=== PATIENT | female | born 1950 | race Caucasian/White ===

== ENCOUNTER → 2017-11-11 | Day surgery (SDC) | payer MEDICARE, OTHER ==
[2017-11-09 09:56] LABS: BASOPHILS % 0.5 % (0.0-1.0); EOSINOPHILS # (AUTO) 0.4 (0.0-0.4); EOSINOPHILS % 4.7 % (0.0-6.0); HEMATOCRIT 40.7 % (34.2-44.1); HEMOGLOBIN 13.5 g/dL (12.0-16.0); LYMPHOCYTES # (AUTO) 2.1 (1.0-3.2); LYMPHOCYTES % 27.2 % (18.0-39.1); MEAN CORPUSCULAR HEMOGLOBIN 28.9 pg (28-32); MEAN CORPUSCULAR HGB CONC 33.2 g/dL (31-35); MEAN CORPUSCULAR VOLUME 87.2 fL (81-99); MONOCYTES # (AUTO) 0.9 (0.2-0.8); MONOCYTES % 11.2 % (4.4-11.3); NEUTROPHILS # (AUTO) 4.3 (2.1-6.9); NEUTROPHILS % 56.1 % (38.7-80.0); PLATELET COUNT 215 x10e3/uL (140-360); RED BLOOD COUNT 4.67 x10e6/uL (3.6-5.1); RED CELL DISTRIBUTION WIDTH 13.8 % (11.7-14.4)
[~2017-11-11] MED LIST: ANALPRAM-HC TP; BENTYL10 MG PO; DEXILANT60 MG PO; FENTANYL CITRATE/PF 100MCG/2 ML INJ ONE; KEPPRA XR750 MG PO; KEPPRA1000 MG PO; LEVAQUIN500 MG PO; LIDOCAINE HCL 2% LOCAL INJ 5 ML SDV VIAL INJ ONE; LINZESS PO; MIDAZOLAM HCL 2 MG/2 ML VIAL ONE; NEXIUM20 MG PO; PAPAYA ENZYME1 EAC1 PO; PROMETHAZINE HC25 M1 PO; PROPOFOL IV EMULSION 10 MG/ML 20 ML VIAL ONE; THYROXINE PO; TRAZODONE HCL100 MG PO; TYLENOL WITH C1 EACH PO; ULTRAM 50MG50 MG PO; VITAMIN D35000 UNI1 PO; ZOFRAN8 MG PO; ZOLOFT50 MG PO
--- OUTSIDE RECORDS SUMMARY | 2017-11-11 10:05 | XMS REPORT ---
Author Author [facility] Address Unknown Phone Unavailable Care Team Providers Care Jailkeeper Name Role Phone ROSLYN TOBIAS Unavailable Unavailable Problems This patient has no known problems. Allergies, Adverse Reactions, Alerts This patient has no known allergies or adverse reactions. Medications This patient has no known medications. Results Test Description Test Time Test Comments Text Results Atomic Results Result Comments CT ABDOMEN/PELVIS WO [place] [address] Patient Name: SOPHIA CASEY MR #: [id number] : 1950 Age/Sex: 67/F Req #: [id number] Adm Physician: Ordered by: ROSLYN TOBIAS MD Report #: [id number] Location: ER Room/Bed: Procedure: [id number] CT/CT ABDOMEN/PELVIS WO Exam Date: 05/05/17 Exam Time: 0410 REPORT STATUS: Signed EXAM: CT ABDOMEN AND PELVIS without IV CONTRAST DATE: 05/05/2017 4:02 AM Time stamp on Exam: 0408 hours INDICATION: Fever, diarrhea, vomiting COMPARISON: CT of the abdomen and pelvis October 17, 2015 TECHNIQUE: The abdomen and pelvis were scanned using a multidetector helical scanner. Coronal and sagittal reformations were obtained. Renal stone protocol performed. IV Contrast: None Oral Contrast: None CTDIvol has been reviewed. It is below the limits set by the Radiation Protocol Committee (RPC). FINDINGS: LOWER THORAX: No consolidations LIVER: No masses BILIARY: The gallbladder has been removed. SPLEEN: No masses PANCREAS: Fatty infiltration. ADRENALS: No nodules RIGHT KIDNEY: No nephroureterolithiasis or hydronephrosis. LEFT KIDNEY: Stable 3 and 4 mm nonobstructing stones in the interpolar region. Stable left renal pelviectasis. GI TRACT: No distention, wall thickening or evidence of obstruction. VESSELS: Unremarkable PERITONEUM/ RETROPERITONEUM: No free air or fluid LYMPH NODES: No lymphadenopathy REPRODUCTIVE ORGANS: Not visualized BLADDER: Unremarkable SOFT TISSUES: Surgical changes of ventral hernia repair. BONES: No suspicious bone lesions. IMPRESSION: No interval change from prior exam or acute findings to explain patient's symptoms. Signed by: Dr. Carine Kovacs M.D. on 07/2017 4:46 AM Dictated By: CARINE KOVACS MD 5 Transcribed By: BRITTANEY on 05/05/17445 COPY TO: ROSLYN TOBIAS MD CHEST 2 VIEWS [place] [address] Patient Name: SOPHIA CASEY MR #: [id number] : 1950 Age/Sex: 67/F Req #: [id number] Adm Physician: Ordered by: ROSLYN TBOIAS MD Report #: [id number] Location: ER Room/Bed: Procedure: [id number] DX/CHEST 2 VIEWS Exam Date: 05/05/17 Exam Time: 0415 REPORT STATUS: Signed EXAM: CHEST 2 VIEWS, PA and lateral DATE: 05/05/2017 4:02 AM Time stamp on exam: 0411 hours INDICATION: Vomiting, fever COMPARISON: None FINDINGS: LINES/TUBES: None LUNGS: No consolidations or edema. PLEURA: No effusions or pneumothorax. HEART AND MEDIASTINUM: Normal size and contour. BONES AND SOFT TISSUES: No acute findings. IMPRESSION: No acute thoracic abnormality. Signed by: Dr. Carine Kovacs M.D. on 05/05/2017 4: 46 AM Dictated By: CARINE KOVACS MD 5 Transcribed By: BRITTANEY on 05/05/17445 COPY TO: ROSLYN TOBIAS MD
== END | disposition home or self-care (01) ==
LOC: OR 10:04
PROVIDERS: ATTEND Internal Medicine Gastroenterology
DX: K29.50 Unspecified chronic gastritis without bleeding (principal); D12.2 Benign neoplasm of ascending colon; D12.4 Benign neoplasm of descending colon; K22.70 Barrett's esophagus without dysplasia; K21.0 Gastro-esophageal reflux disease with esophagitis; K58.9 Irritable bowel syndrome, unspecified; K59.00 Constipation, unspecified; K57.30 Diverticulosis of large intestine without perforation or abscess without bleeding; K64.8 Other hemorrhoids; K44.9 Diaphragmatic hernia without obstruction or gangrene; E66.01 Morbid (severe) obesity due to excess calories; R56.9 Unspecified convulsions; I25.10 Atherosclerotic heart disease of native coronary artery without angina pectoris; I25.2 Old myocardial infarction; N20.0 Calculus of kidney; I95.9 Hypotension, unspecified; Z01.810 Encounter for preprocedural cardiovascular examination; Z01.812 Encounter for preprocedural laboratory examination; Z68.41 Body mass index [BMI] 40.0-44.9, adult; Z80.0 Family history of malignant neoplasm of digestive organs; Z83.79 Family history of other diseases of the digestive system
CPT/HCPCS: 36415; 43239; 45384; 45385; 85025; 93005; J2001; J2250

== ENCOUNTER → 2018-02-26 | Outpatient (CLI) | payer MEDICARE ==
[~2018-02-26] MED LIST changes: -FENTANYL CITRATE/PF 100MCG/2 ML INJ ONE; -LIDOCAINE HCL 2% LOCAL INJ 5 ML SDV VIAL INJ ONE; -MIDAZOLAM HCL 2 MG/2 ML VIAL ONE; -PROPOFOL IV EMULSION 10 MG/ML 20 ML VIAL ONE
--- NOTE | 2018-02-26 11:28 | Diagnostic Imaging Report ---
PROCEDURE:X-RAY ABDOMEN - KUB COMPARISON:Abdominal CT 05/05/2017 INDICATIONS:CALCULI OF KIDNEY FINDINGS: There is a non-obstructed bowel-gas pattern. There are two adjacent 0.3 cm calcifications projecting over the midpole of the left renal silhouette, as seen on CT 05/05/2017. No calcifications project over the right renal silhouette, expected course of both ureters, or bladder. Multiple phleboliths are unchanged from the prior CT. Cholecystectomy clips in the right upper quadrant. There are no acute osseous abnormalities. The lung bases are clear. CONCLUSION: Two 0.3 cm renal calculi in the left kidney. Dictated by: Сергей Forde M.D. on 02/26/2018 at 11:32 Electronically approved by: Сергей Forde M.D. on 02/26/2018 at 11:32
== END ==
LOC: RAD 10:12
PROVIDERS: ATTEND Urology
DX: N20.0 Calculus of kidney (principal)
CPT/HCPCS: 74018

== ENCOUNTER 2018-06-09 07:26 | Observation (INO) | payer MEDICARE, OTHER ==
[2018-06-02 16:49] LABS: BASOPHILS # (AUTO) 0.1 (0.0-0.1); BASOPHILS % 0.7 % (0.0-1.0); EOSINOPHILS # (AUTO) 0.3 (0.0-0.4); EOSINOPHILS % 3.3 % (0.0-6.0); HEMATOCRIT 39.6 % (34.2-44.1); HEMOGLOBIN 13.1 g/dL (12.0-16.0); LYMPHOCYTES # (AUTO) 2.4 (1.0-3.2); LYMPHOCYTES % 27.3 % (18.0-39.1); MEAN CORPUSCULAR HEMOGLOBIN 29.8 pg (28-32); MEAN CORPUSCULAR HGB CONC 33.1 g/dL (31-35); MEAN CORPUSCULAR VOLUME 90.2 fL (81-99); MONOCYTES % 11.4 % (4.4-11.3); NEUTROPHILS % 57.1 % (38.7-80.0); PLATELET COUNT 253 x10e3/uL (140-360); RED BLOOD COUNT 4.39 x10e6/uL (3.6-5.1); RED CELL DISTRIBUTION WIDTH 13.5 % (11.7-14.4)
--- NOTE | 2018-06-02 16:55 | Diagnostic Imaging Report ---
EXAMINATION: PA and lateral views of the chest. COMPARISON: None CLINICAL HISTORY: Preoperative, hiatal hernia DISCUSSION: Lines/tubes: None. Lungs: The lungs are well inflated and clear. No pneumonia or pulmonary edema. Pleura: No pleural effusion or pneumothorax. Heart and mediastinum: The cardiomediastinal silhouette is normal. Bones and soft tissues: No acute bony abnormalities. IMPRESSION: No acute cardiopulmonary abnormalities. Signed by: Dr. Kyrie Calabrese M.D. on 06/02/2018 4:52 PM
[2018-06-02 17:16] LABS: ANION GAP 13.5 mmol/L (8-16); BLOOD UREA NITROGEN 16 mg/dL (7-26); BUN/CREATININE RATIO 19 (6-25); CALCIUM 9.4 mg/dL (8.4-10.2); CARBON DIOXIDE 25 mmol/L (22-29); CHLORIDE 104 mmol/L (98-107); CREATININE, SERUM 0.84 mg/dL (0.57-1.11); EST GLOMERULAR FILTRATION RATE > 60 ML/MIN (60-); GLUCOSE 92 mg/dL (74-118); POTASSIUM 3.5 mmol/L (3.5-5.1); SODIUM 139 mmol/L (136-145)
[~2018-06-09] VITALS: Ht 162.6 cm; Wt 108.1 kg
[~2018-06-09 07:26] MED LIST changes: +ASPIR 8181 MG PO; +BENTYL10 MG/1 ML PO; +LEVOTHYROXINE100 MC1 PO; +LIPITOR20 MG PO; +NEXIUM40 MG PO; +NORVASC5 MG PO; +REGLAN10 MG PO; +VIT D PO
--- OUTSIDE RECORDS SUMMARY | 2018-06-09 07:33 | XMS REPORT | Summary of Care ---
Author Author [facility] [place] Organization [facility] [place] Address Unknown Phone Unavailable Encounter [facility] Maynorntr_anjel(FIN) [phone] Date(s): 11/28/16 - 11/28/16 [facility] [place] [address] [place] [phone] Discharge Disposition: Home or Self Care Attending Physician: Donna Darnell MD Vital Signs No data available for this section Problem List No data available for this section Allergies, Adverse Reactions, Alerts Substance Reaction Severity Status NKDA Active Medications No data available for this section Results No data available for this section Immunizations No data available for this section Procedures No data available for this section Social History No data available for this section Assessment and Plan No data available for this section
--- OUTSIDE RECORDS SUMMARY | 2018-06-09 07:33 | XMS REPORT | Summary of Care ---
Author Organization Unknown Address Unknown Phone Unavailable Care Team Providers Care Yard Motor Operator Name Role Phone Wilma Duke PCP Encounter Osirisr_anjel([facility]) [phone] Date(s): 01/08/15 - 01/08/15 [facility] Outpatient Imaging - [address] [address] [phone] Discharge Disposition: Home Physician Attending: Bang George DO Vital Signs No data available for this [...]
--- OUTSIDE RECORDS SUMMARY | 2018-06-09 07:33 | XMS REPORT | Continuity of Care Document ---
Author Author Audrey busch Organization Interface Address Unknown Phone Unavailable Problems Problem Status Onset Date Classification Date Reported Comments Source Meningioma Resolved 02/04/2017 Problem 03/01/2018 [facility], [facility] MENINGIOMA D33.0 Active 01/01/2017 [facility] N64.4 - MASTODYNIA Active 09/04/2016 JUSTINE Stephens Heart attack Resolved 08/24/1989 Problem 03/01/2018 [facility] [place],[facility] Narayan,[facility] Morbid obesity Active Problem 03/01/2018 [facility] Angelo,[facility] Narayan,[facility] Meningioma Active Problem 03/01/2018 [facility] [place],[facility] Narayan,[facility] Medications Medication Details Route Status Patient Instructions Ordering Provider Order Date Source levothyroxine 100 mcg (0.1 mg) oral tablet 100 microgram=1 tab, PO, Daily, 0 Refill(s) Active 08/03/2017 [facility] Linzess PO, Daily, 0 Refill(s) Active 08/03/2017 [facility] Acetaminophen 325 MG / Hydrocodone Bitartrate 5 MG Oral Tablet 1 tab, Route: PO, Drug Form: TAB, Dosing Weight 110, kg, Q4H, PRN Pain Score 4-6, Start date: 02/04/17 6:03:00 CDT, Duration: 30 day, Stop date: 03/06/17 6:02:00 CDT Inactive 02/04/2017 [facility] Acetaminophen 325 mg, Route: PO, Drug form: TAB, Q4H, Dosing Weight 110, kg, PRN Pain Score 1-3, Start date: 02/04/17 6:03:00 CDT, Duration: 30 day, Stop date: 03/06/17 6:02:00 CDT Inactive 02/04/2017 [facility] Sodium Chloride 0.154 MEQ/ML Injectable Solution 1,000 mL, Rate: 50 ml/hr, Infuse over: 20 hr, Route: IV, Dosing Weight 110 kg, Total Volume: 1,000, Priority: Routine, Start date: 02/04/17 6:03:00 CDT, Duration: 30 day, Stop date: 03/06/17 6:02:00 CDT Inactive 02/04/2017 [facility] Bacitracin 0.5 UNT/MG / Polymyxin B 10 UNT/MG Topical Ointment [Polysporin] 1 appl, Route: TOP, ONCALL, Drug form: OINT, Priority: Routine, Start date: 02/04/17 6:00:00 CDT, Duration: 1 doses or times Inactive 02/04/2017 [facility] Bupivacaine Hydrochloride 2.5 MG/ML / Epinephrine 0.005 MG/ML Injectable Solution 30 mL, Route: MISC, Dosing Weight 110, kg, ONCALL, Start date: 02/04/17 6:00:00 CDT, Duration: 30 day, Stop date: 03/06/17 5:59:00 CDT Inactive 02/04/2017 [facility] Fentanyl 50 microgram, Route: IVP, ONCALL, Dosing Weight 110, kg, Priority: Routine, Start date: 02/04/17 6:00:00 CDT, Duration: 1 doses or times Inactive 02/04/2017 [facility] Promethazine 25 mg, Route: IVPB, Q6H, Dosing Weight 110, kg, PRN Nausea & Vomiting, Start date: 02/04/17 5:55:00 CDT, Duration: 30 day, Stop date: 03/06/17 5:54:00 CDT Inactive 02/04/2017 [facility] Fentanyl 25 microgram, Route: IVP, Q1H, Dosing Weight 110, kg, PRN Pain Score 6-10, Priority: Routine, Start date: 02/04/17 5:55:00 CDT, Duration: 1 doses or times, Stop date: Limited # of times Inactive 02/04/2017 [facility] Sodium Chloride 0.154 MEQ/ML Injectable Solution 1,000 mL, Rate: 50 ml/hr, Infuse over: 20 hr, Route: IV, Dosing Weight 110 kg, Total Volume: 1,000, Priority: Routine, Start date: 02/04/17 5:55:00 CDT, Duration: 30 day, Stop date: 03/06/17 5:54:00 CDT Inactive 02/04/2017 [facility] Dexamethasone 6 mg, Route: IVP, Drug form: INJ, ONCE, Dosing Weight 110, kg, Start date: 02/04/17 5:55:00 CDT, Stop date: 02/04/17 5:55:00 CDT Inactive 02/04/2017 [facility] Ondansetron 4 mg, Route: IVP, Drug form: INJ, Q6H, Dosing Weight 110, kg, PRN Nausea & Vomiting, Start date: 02/04/17 5:55:00 CDT, Duration: 30 day, Stop date: 03/06/17 5:54:00 CDT Inactive 02/04/2017 [facility] Famotidine 20 mg, Route: IVP, Drug form: INJ, ONCE, Dosing Weight 110, kg, Start date: 02/04/17 5:55:00 CDT, Stop date: 02/04/17 5:55:00 CDT Inactive 02/04/2017 [facility] Allergies, Adverse Reactions, Alerts Substance Category Reaction Severity Reaction type Status Date Reported Comments Source Immunizations Immunization Date Given Site Status Last Updated Comments Source Results Order Name Results Value Reference Range Date Interpretation Comments Source Breast Mammo Diag DEL[place] incl CAD MA Breast Mammo Diag [place] incl CAD MA BILATERAL DIGITAL DIAGNOSTIC MAMMOGRAM WITH CAD: 12/14/2017 CLINICAL: Z85.3 Personal History Of Malignant Neoplasm Of Breast/Z85.3 Personal History Of Malignant Neoplasm Of Breast. Current study was evaluated with a Computer Aided Detection (CAD) system. COMPARISON:Comparison is made to exams dated: 09/18/2016 mammogram, 01/08/2015 mammogram - [facility], 08/27/2012 mammogram - [facility], and 03/20/2009 mammogram. TECHNIQUE: Mammographic views were obtained using digital acquisition. Current study was also evaluated with a Computer Aided Detection (CAD) system. FINDINGS: The tissue of both breasts is almost entirely fat. There are benign calcifications in both breasts. No significant masses, calcifications, or other findings are seen in either breast. There has been no significant interval change. IMPRESSION: BENIGN RECOMMENDATION:There is no mammographic evidence of malignancy. A 1 year screening mammogram is recommended.(12/15/2018) This exam was interpreted at [id number] for JEANNINE Stephens, SL 15. Professional services are provided by the [facility]. Daniel Lyons M.D. cm/penrad:12/14/2017 09:35:33 Mds Rn(s): Roxana Morgan, RT(R)(M), Audrey Stephens letter sent: BI-RADS 1/2 Mammogram BI-RADS: 2 Benign 12/14/2017 - - Read by: Chandra Gardner MD Dictated Date/time: 12/14/17 09:35 Electronically Signed by: Chandra Gardner MD 12/14/17 09:35 FINAL REPORT JEANNINE Stephens Brain w/wo contrast MRI Brain w/wo contrast MRI EXAMINATION: MRI brain with and without contrast DATE: 08/03/2017 INDICATION: Meningioma. Gamma knife therapy 6 months ago FINDINGS: Multiplanar multisequence MRI images the brain are performed both before and after intravenous administration of 20 mL Dotarem gadolinium contrast. Comparison made to studies dated 02/04/2017, 11/28/2016, and 05/30/2009. Over the interval, there has been little significant change in the size of a 18 x 19 x 21 mm meningioma arising from the junction of the falx and sagittal sinus near the parieto-occipital fissure. Central areas of scarring or calcification are again noted. There is some new T2 signal abnormality in the adjacent occipital white matter extending about 2 cm anterior to the lesion. The paranasal sagittal sinus is unchanged. There is probably invasion the left lateral wall that there is no flow-limiting stenosis. IMPRESSION: Stable left posterior fossa meningioma, now with some treatment changes in the adjacent brain parenchyma. 08/03/2017 - - Read by: Casimiro Jerome MD Dictated Date/time: 08/03/17 11:52 Electronically Signed by: Casimiro Jerome MD 08/03/17 11:58 FINAL REPORT JEANNINE Busch CHEM PANEL BUN 17 mg/dL 7 - 22 02/04/2017 [facility] CHEM PANEL Creatinine Lvl 0.95 mg/dL 0.50 - 1.40 02/04/2017 [facility] CHEM PANEL eGFR 62 mL/min/1.73m2 02/04/2017 Result Comment: The eGFR is calculated using the CKD-EPI formula. In most young, healthy individuals the eGFR will be >90 mL/min/1.73m2. The eGFR declines with age. An eGFR of 60-89 may be normal in some populations, particularly the elderly, for whom the CKD-EPI formula has not been extensively validated. Use of the eGFR is not recommended in the following populations: Individuals with unstable creatinine concentrations, including patients and those with serious co-morbid conditions. Patients with extremes in muscle mass or diet. The data above are obtained from the National Kidney Disease Education Program (NKDEP) which additionally recommends that when the eGFR is used in patients with extremes of body mass index for purposes of drug dosing, the eGFR should be multiplied by the estimated BMI. [facility] Brain w contrast MRI Brain w contrast MRI EXAM: MRI BRAIN WITH CONTRAST DATE: 02/04/2017 6:30 AM CDT INDICATION: Meningioma, Gamma knife COMPARISON: MRI brain from 11/28/2016 TECHNIQUE: Axial postcontrast 3-D T1 weighted imaging was acquired through the brain. IV contrast: 20 mL MultiHance FINDINGS: Limited sequence was acquired for treatment planning. 2 x 1.8 cm enhancing mass along the posterior falx and occipital convexity at the left at the level of the parietal occipital fissure, without interval change in size. The mass abuts the superior sagittal sinus and mild associated mass effect on its lateral margin. No additional enhancing intracranial lesions. No hydrocephalus or midline shift. IMPRESSION: Stealth protocol for treatment planning. Enhancing mass left occipital parafalcine mass compatible with meningioma. The mass is inseparable from the superior sagittal sinus with mild associated mass effect. 02/04/2017 - - Read by: Kapil Choi MD Dictated Date/time: 02/04/17 08:17 Electronically Signed by: Kapil Choi MD 02/04/17 08:31 FINAL REPORT [facility] Brain w/wo contrast MRI Brain w/wo contrast MRI Patient Name: SOPHIA CASEY : 1950; Age: 66 years y/o Female MR: [id number] Study: Brain w/wo contrast MRI 11/28/2016 9:07 AM CDT Ordering Physician: Donna Darnell MD Clinical Indication: D32.9 Benign neoplasm of meninges, unspecified; Comparison: 05/30/2009 brain MRI TECHNIQUE : Multiplanar imaging of the brain was obtained both prior to and after uncomplicated IV administration of 20 cc Dotarem FINDINGS: BRAIN PARENCHYMA: Again noted overlying the left medial parietal lobe and abutting the posterior falx is a stable enhancing extra-axial mass likely representing a meningioma which is centrally calcified. This measures 2.1 x 2.1 x 1.8 cm in sagittal, anterior posterior, transverse dimensions, respectively without significant change. There is abutment of the superior sagittal sinus which remains grossly patent. There is also prominence to the anterior falcine calcification and frontal bone thickening so that a calcified en plaque meningioma is regions cannot be excluded. There is minimal diffuse cerebral atrophy. There are minimal punctate T2 hyperintensities involving the cerebral white matter without enhancement nor diffusion restriction. These are nonspecific but likely represent small vessel ischemic change. No restricted diffusion is identified. There is no significant mass effect or midline shift. There is no extra-axial fluid collection or intraparenchymal hemorrhage. CEREBELLOPONTINE REGIONS AND SKULL BASE: The cerebellopontine angles appear unremarkable. No skull base abnormality is seen. VENTRICLES/SULCI/CISTERNS: The ventricles are normal in size and configuration. The basal cisterns are patent. VISUALIZED VESSELS: Major intracranial flow voids are preserved. ORBITS, VISUALIZED PARANASAL SINUSES AND MASTOIDS: Paranasal sinuses are clear. There is hypertrophy of the right inferior turbinate mucosa abutting the midline nasal septum. The mastoid air cells are clear. No orbital pathology is seen. IMPRESSION: 1. Grossly stable left parafalcine meningioma with abutting the left superior sagittal sinus. 2. Minimal probable small vessel ischemic changes. 3. Hypertrophy of the right inferior turbinate mucosa is an additional potential source of patient's headaches. 11/28/2016 - - Read by: Aaron Garcia MD Dictated Date/time: 11/28/16 14:10 Electronically Signed by: Aaron Garcia MD 11/28/16 14:18 FINAL REPORT JUSTINE Stephens Breast Limited [place] US Breast Limited [place] US - BREAST LIMITED [place] US ULTRASOUND OF BOTH BREASTS: 09/18/2016 CLINICAL: Breast Pain. Comparison is made to exams dated: 09/18/2016 mammogram, 01/08/2015 mammogram - [facility], 08/27/2012 mammogram - [facility] and 03/20/2009 mammogram. Color flow and real-time ultrasound of both breasts were performed. No abnormalities were seen sonographically in either breast. No sonographic correlate is identified for the patient's breast pain. IMPRESSION: BENIGN White bilateral discharge is benign. Consider checking prolactin levels. No anatomic explanatino for patinent's breast pain. Consider referred pain and clinical management. There is no sonographic evidence of malignancy. A 1 year screening mammogram is recommended. Professional services are provided by the [facility] Division of Diagnostic Imaging. Daniel Lyons M.D. cm/:09/18/2016 12:55:51 Mds Rn: Thi Campo, [facility] This exam was dictated and interpreted by [id number] for Angelo. letter sent: Normal exam Ultrasound BI-RADS: 2 Benign 09/18/2016 - - Read by: Chandra Gardner MD Dictated Date/time: 09/18/16 12:55 Electronically Signed by: Chandra Gardner MD 09/18/16 12:55 FINAL REPORT JEANNINE JUSTINE Stephens Digital Mammo DX [place] MA Digital Mammo DX [place] MA - DIGITAL MAMMO DX [place] MA BILATERAL DIGITAL DIAGNOSTIC MAMMOGRAM WITH CAD: 09/18/2016 CLINICAL: Breast Pain. Current study was evaluated with a Computer Aided Detection (CAD) system. Comparison is made to exams dated: 01/08/2015 mammogram - [facility], 08/27/2012 mammogram - [facility] and 03/20/2009 mammogram. There are scattered fibroglandular densities in both breasts. White bilateral nipple discharge is benign. No significant masses, calcifications, or other findings are seen in either breast. IMPRESSION: BENIGN There is no mammographic abnormality seen in either breast to correspond with the pain, however further workup with ultrasound is recommended. There is no mammographic evidence of malignancy. Professional services are provided by the [facility] Division of Diagnostic Imaging. Daniel Lyons M.D., cm/penrad:09/18/2016 12:29:02 Mds Rn: Mitali FIERRO(De)(Darlyn), [facility] This exam was dictated and interpreted by [id number] for Angelo. Mammogram BI-RADS: 2 Benign 09/18/2016 - - Read by: Chandra Gardner MD Dictated Date/time: 09/18/16 12:29 Electronically Signed by: Chandra Gardner MD 09/18/16 12:29 FINAL REPORT JEANNINE Stephens Abdomen 2 views DX Abdomen 2 views DX ABDOMEN X-RAY, 2 VIEWS History: 65-year-old female with generalized abdominal pain Comparison: 07/23/2011 Findings: Lung bases partial visualized are clear. The bowel distribution is nonspecific and not obstructed. The colon is moderate distended with stool and gas. No abnormal calcifications noted over the kidneys or in the pelvis. Surgical clips project over the right upper quadrant, likely post cholecystectomy. 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 IMPRESSION: No acute abdominal abnormality. The colon is moderate distended with stool and gas suggesting constipation. There is no evidence for urolithiasis. ABDOMEN X-RAY, 2 VIEWS History: 65-year-old female with generalized abdominal pain Comparison: 07/23/2011 Findings: Lung bases partial visualized are clear. The bowel distribution is nonspecific and not obstructed. The colon is moderate distended with stool and gas. No abnormal calcifications noted over the kidneys or in the pelvis. Surgical clips project over the right upper quadrant, likely post cholecystectomy. 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 IMPRESSION: No acute abdominal abnormality. The colon is moderate distended with stool and gas suggesting constipation. There is no evidence for urolithiasis. 08/15/2015 - - Read by: Eric Amador MD Dictated Date/time: 08/22/15 15:58 Electronically Signed by: Eric Amador 08/22/15 15:58 FINAL REPORT - - Read by: Eric Amador MD Dictated Date/time: 08/15/15 14:58 Electronically Signed by: Eric Amador 08/15/15 15:00 FINAL REPORT JEANNINE Stephens Digital Mammo Screening [place] MA Digital Mammo Screening [place] MA AMENDMENT: 02/05/2015 Juarez Ramsay M.D. Previous outside mammograms from 2008 and 2012 have been received. No adverse interval change accounting for differences in technique. Patient should return for yearly screening mammogram. Amended BI-RADS: 1 Negative letter sent: Normal exam - DIGITAL MAMMO SCREENING [place] MA BILATERAL DIGITAL SCREENING MAMMOGRAM WITH CAD: 01/08/2015 CLINICAL: Routine. Current study was evaluated with a Computer Aided Detection (CAD) system. Comparison is made to exam dated: 03/20/2009 mammogram. There are scattered fibroglandular densities in both breasts. No significant masses, calcifications, or other findings are seen in either breast. There has been no significant interval change. IMPRESSION: NEGATIVE There is no mammographic evidence of malignancy. A 1 year screening mammogram is recommended. SUMMARY: The patient reported a history of breast pain on her intake questionnaire. There is no mammographic correlate to the reported symptom of pain in both breasts. Therefore, management of this symptom should be based on findings at clinical examination. Targeted sonography should be considered if the pain is clinically suspicious. Dr. Jocelyn Fraire D.O. ht/penrad:01/10/2015 11:19:49 Mds Rn: Katrina FIERRO(De)(M), [facility] This exam was dictated and interpreted by [id number] for JEANNINE Beaver. letter sent: Normal exam Mammogram BI-RADS: 1 Negative 01/08/2015 - - Read by: Jocelyn Fraire DO Dictated Date/time: 02/05/15 12:43 Electronically Signed by: Jocelyn Fraire DO 02/05/15 12:43 FINAL REPORT - - Read by: Jocelyn Fraire DO Dictated Date/time: 01/10/15 11:19 Electronically Signed by: Jocelyn Fraire DO 01/10/15 11:19 FINAL REPORT JEANNINE Stephens Vital Signs Vital Sign Value Date Comments Source Height 160.02 cm 08/03/2017 [facility] BMI Calculated 41.72 08/03/2017 [facility] Weight 106.818 08/03/2017 [facility] Temperature Oral (F) 97.6 F 08/03/2017 [facility] Heart Rate 78 08/03/2017 [facility] Systolic (mm Hg) 194 08/03/2017 [facility] Diastolic (mm Hg) 94 08/03/2017 [facility] Systolic (mm Hg) 164 02/04/2017 [facility] Diastolic (mm Hg) 78 02/04/2017 [facility] Respitory Rate 8 02/04/2017 [facility] Respitory Rate 18 02/04/2017 [facility] Systolic (mm Hg) 142 02/04/2017 [facility] Diastolic (mm Hg) 65 02/04/2017 [facility] Respitory Rate 18 02/04/2017 [facility] Systolic (mm Hg) 143 02/04/2017 [facility] Diastolic (mm Hg) 71 02/04/2017 [facility] Heart Rate 71 02/04/2017 [facility] Height 162.56 cm 01/30/2017 [facility] Weight 110 01/30/2017 [facility] BMI Calculated 41.63 01/30/2017 [facility] Encounters Location Location Details Encounter Type Encounter Number Reason For Visit Attending Provider ADM Date DC Date Status Source [facility] Outpatient Imaging - [place] [facility] [id number] Bang George 01/08/2015 01/09/2015 [facility] [place] [facility] Outpatient Imaging - [place] [facility] [id number] German Hernaneds 08/15/2015 08/16/2015 [facility] [place] [facility] Outpatient Imaging - [place] [facility] [id number] German Hernandes 09/18/2016 09/19/2016 [facility] [place] [facility] Outpatient Imaging - [place] [facility] [id number] Donna Darnell 11/28/2016 11/29/2016 [facility] [place] Outpatient [id number] GERMAIN POLLARD 12/30/2016 Active [facility] Outpatient [id number] SAMPSON GALAVIZ 12/30/2016 Active [facility] Outpatient [id number] Sampson Galaviz 02/04/2017 02/04/2017 [facility] Outpatient [id number] KRYS MUSTAFA 08/03/2017 Active [facility] Outpatient Imaging [place] [facility] [id number] Sampson Galaviz 08/03/2017 [facility] Outpatient [id number] Bang George 08/03/2017 08/04/2017 [facility] Outpatient Imaging - [place] [facility] [id number] Marisela Holcombk 12/14/2017 12/15/2017 [facility] [place] [facility] Spine Clinic [facility] Phone Message [id number] 02/25/2018 02/27/2018 [facility] MNA Neurosurgery [facility] Phone Message [id number] 02/25/2018 02/27/2018 [facility] Procedure Code Date Perfomer Comments Source Stereotactic radiosurgery [id number] 02/04/2017 [facility] Neuro Stereotactic radiosurgery [id number] 02/04/2017 [facility] [place] Stereotactic radiosurgery [id number] 02/04/2017 [facility] [place] Lithotripsy [id number] 08/24/2014 [facility] Parathyroid removal [id number] 08/24/2014 [facility] Removal - procedure Mesh [id number] 08/24/2014 [facility] Neuro Lithotripsy [id number] 08/24/2014 [facility] [place] Parathyroid removal [id number] 08/24/2014 [facility] [place] Removal - procedure Mesh [id number] 08/24/2014 [facility] [place] Lithotripsy [id number] 08/24/2014 [facility] [place] Parathyroid removal [id number] 08/24/2014 [facility] Narayan Removal - procedure Mesh [id number] 08/24/2014 [facility] [place] Lithotripsy [id number] 08/24/2014 [facility] Parathyroid removal [id number] 08/24/2014 [facility] Removal - procedure Mesh [id number] 08/24/2014 [facility] Hernia repair [id number] 08/24/2000 [facility] Neuro Hernia repair [id number] 08/24/2000 [facility] [place] Hernia repair [id number] 08/24/2000 [facility] Narayan Hernia repair [id number] 08/24/2000 [facility] Appendectomy [id number] 08/24/1990 [facility] Neuro Gallbladder [id number] 08/24/1990 [facility] Appendectomy [id number] 08/24/1990 [facility] [place] Gallbladder [id number] 08/24/1990 [facility] [place] Appendectomy [id number] 08/24/1990 [facility] [place] Gallbladder [id number] 08/24/1990 [facility] Narayan Appendectomy [id number] 08/24/1990 [facility] Gallbladder [id number] 08/24/1990 [facility] Vein vericose removal [id number] 08/24/1985 [facility] Neuro Vein vericose removal [id number] 08/24/1985 [facility] [place] Vein vericose removal [id number] 08/24/1985 [facility] Narayan Vein vericose removal [id number] 08/24/1985 [facility] Hysterectomy [id number] 08/24/1971 [facility] Neuro Hysterectomy [id number] 08/24/1971 [facility] [place] Hysterectomy [id number] 08/24/1971 [facility]ayan Hysterectomy [id number] 08/24/1971 [facility]
--- OUTSIDE RECORDS SUMMARY | 2018-06-09 07:33 | XMS REPORT | Summary of Care ---
Author Author [facility] Out[facility] [place] Organization [facility] Out[facility] [place] Address Unknown Phone Unavailable Encounter YURIY Monet(JOAN) [id number] Date(s): 08/03/17 - 08/03/17 [facility] Out[facility] [place] [address] [place] [phone] Discharge Disposition: Home or Self Care Attending Physician: Sampson Galaviz MD Vital Signs No data available for this section Problem List Condition Effective Dates Status Health Status Informant Meningioma(Confirmed < 02/04/17 Resolved ) Heart < 1989 Resolved attack(Confirmed) Morbid Active obesity(Confirmed) Meningioma(Confirmed Active ) Allergies, Adverse Reactions, Alerts Substance Reaction Severity Status NKDA Active Medications No data available for this section Results No data available for this section Immunizations No data available for this section Procedures Procedure Date Related Diagnosis Body Site Stereotactic radiosurgery 02/04/17 Lithotripsy 2014 Parathyroid removal 2014 Removal - procedure Mesh 2014 Hernia repair 2000 Appendectomy 1990 Gallbladder 1991 Vein vericose removal 1985 Hysterectomy 1972 Social History Social History Type Response Substance Abuse Use: None. Alcohol Never Smoking Status Never smoker; Previous treatment: None; Ready to change: No; Concerns about tobacco use in household: No; Exposure to Tobacco Smoke None; Cigarette Smoking Last 365 Days No; Reg Smoking Cessation Counseling No Assessment and Plan No data available for this section
--- OUTSIDE RECORDS SUMMARY | 2018-06-09 07:33 | XMS REPORT | Summary of Care ---
Author Author [facility] Organization [facility] Address Unknown Phone Unavailable Encounter YURIY Monet(JOAN) [id number] Date(s): 02/04/17 - 02/04/17 [facility] [address] [place] [address] Discharge Disposition: Home or Self Care Attending Physician: Sampson Galaviz MD Admitting Physician: Sampson Galaviz MD Referring Physician: Sampson Galaviz MD Vital Signs 1 2 3 Most recent to oldest [Reference Range]: 162.56 cm (01/30/17 12:49 PM) Height 164/78 mmHg *HI* (02/04/17 12:00 PM) 142/65 mmHg *HI* (02/04/17 11:40 AM) 143/71 mmHg *HI* (02/04/17 11:25 AM) Blood Pressure [90-140/60-90 mmHg] 8 BRMIN *LOW* (02/04/17 12:00 PM) 18 BRMIN (02/04/17 11:40 AM) 18 BRMIN (02/04/17 11:25 AM) Respiratory Rate [14-20 BRMIN] 71 bpm (02/04/17 5:30 AM) Peripheral Pulse Rate [60-100 bpm] 110 kg (01/30/17 12:49 PM) Weight 41.63 m2 (01/30/17 12:49 PM) Body Mass Index Problem List Condition Effective Dates Status Health Status Informant Heart < 1990 Resolved attack(Confirmed) Morbid Active obesity(Confirmed) Meningioma(Confirmed Active ) Allergies, Adverse Reactions, Alerts Substance Reaction Severity Status NKDA Active Medications acetaminophen 325 mg, Route: PO, Drug form: TAB, Q4H, Dosing Weight 110, kg, PRN Pain Score 1- 3, Start date: 02/04/17 6:03:00 CDT, Duration: 30 day, Stop date: 03/06/17 6:02: 00 CDT Start Date: 02/04/17 Stop Date: 02/04/17 Status: Discontinued acetaminophen-hydrocodone 325 mg-5 mg oral tablet 1 tab, Route: PO, Drug Form: TAB, Dosing Weight 110, kg, Q4H, PRN Pain Score 4-6 , Start date: 02/04/17 6:03:00 CDT, Duration: 30 day, Stop date: 03/06/17 6:02:0 0 CDT Start Date: 02/04/17 Stop Date: 02/04/17 Status: Discontinued acetaminophen-hydrocodone 325 mg-5 mg oral tablet 2 tab, Route: PO, Drug Form: TAB, Dosing Weight 110, kg, Q4H, PRN Pain Score 7-1 0, Start date: 02/04/17 6:03:00 CDT, Duration: 30 day, Stop date: 03/06/17 6:02: 00 CDT Start Date: 02/04/17 Stop Date: 02/04/17 Status: Discontinued bupivacaine 0.25%-epinephrine 1:200,000 injectable solution 30 mL, Route: MISC, Dosing Weight 110, kg, ONCALL, Start date: 02/04/17 6:00:00 CDT, Duration: 30 day, Stop date: 03/06/17 5:59:00 CDT Start Date: 02/04/17 Stop Date: 02/04/17 Status: Completed dexamethasone 6 mg, Route: IVP, Drug form: INJ, ONCE, Dosing Weight 110, kg, Start date: 02/04 5:55:00 CDT, Stop date: 02/04/17 5:55:00 CDT Start Date: 02/04/17 Stop Date: 02/04/17 Status: Completed famotidine 20 mg, Route: IVP, Drug form: INJ, ONCE, Dosing Weight 110, kg, Start date: 01/22 12/08 5:55:00 CDT, Stop date: 02/04/17 5:55:00 CDT Start Date: 02/04/17 Stop Date: 02/04/17 Status: Completed fentaNYL 25 microgram, Route: IVP, Q1H, Dosing Weight 110, kg, PRN Pain Score 6-10, Prior ity: Routine, Start date: 02/04/17 5:55:00 CDT, Duration: 1 doses or times, Stop date: Limited # of times Start Date: 02/04/17 Stop Date: 02/04/17 Status: Completed fentaNYL 50 microgram, Route: IVP, ONCALL, Dosing Weight 110, kg, Priority: Routine, Star t date: 02/04/17 6:00:00 CDT, Duration: 1 doses or times Start Date: 02/04/17 Stop Date: 02/04/17 Status: Completed ondansetron 4 mg, Route: IVP, Drug form: INJ, Q6H, Dosing Weight 110, kg, PRN Nausea & Vomiting, Start date: 02/04/17 5:55:00 CDT, Duration: 30 day, Stop date: 5:54:00 CDT Start Date: 02/04/17 Stop Date: 02/04/17 Status: Discontinued Polysporin topical ointment 1 appl, Route: TOP, ONCALL, Drug form: OINT, Priority: Routine, Start date: 01/22 12/08 6:00:00 CDT, Duration: 1 doses or times Start Date: 02/04/17 Stop Date: 02/04/17 Status: Completed promethazine 25 mg, Route: IVPB, Q6H, Dosing Weight 110, kg, PRN Nausea & Vomiting, Start date: 02/04/17 5:55:00 CDT, Duration: 30 day, Stop date: 03/06/17 5:54:00 CDT Start Date: 02/04/17 Stop Date: 02/04/17 Status: Discontinued Sodium Chloride 0.9% IV 1000 mL 1,000 mL, Rate: 50 ml/hr, Infuse over: 20 hr, Route: IV, Dosing Weight 110 kg, T otal Volume: 1,000, Priority: Routine, Start date: 02/04/17 6:03:00 CDT, Duratio n: 30 day, Stop date: 03/06/17 6:02:00 CDT Start Date: 02/04/17 Stop Date: 02/04/17 Status: Discontinued Sodium Chloride 0.9% IV 1000 mL 1,000 mL, Rate: 50 ml/hr, Infuse over: 20 hr, Route: IV, Dosing Weight 110 kg, T otal Volume: 1,000, Priority: Routine, Start date: 02/04/17 5:55:00 CDT, Kareen n: 30 day, Stop date: 03/06/17 5:54:00 CDT Start Date: 02/04/17 Stop Date: 02/04/17 Status: Discontinued Results CHEM PANEL Most recent to 1 oldest [Reference Range]: Creatinine Lvl 0.95 mg/dL [0.50-1.40 mg/dL] (02/04/17 5:30 AM) eGFR 62 mL/min/1.73m2 1 *NA* (02/04/17 5:30 AM) BUN [7-22 mg/dL] 17 mg/dL (02/04/17 5:30 AM) 1Result Comment: The eGFR is calculated using the [...] from the National Kidney Disease Education Program ( NKDEP) which additionally recommends that when the eGFR is used in patients with extremes of body mass index for purposes of drug dosing, the eGFR should be mul tiplied by the estimated BMI. Immunizations No data available for this section Procedures Procedure Date Related Diagnosis Body Site Lithotripsy 2014 Parathyroid removal 2014 Removal - procedure Mesh 2014 Hernia repair 2000 Appendectomy 1990 Gallbladder 1991 Vein vericose removal 1985 Hysterectomy 1971 Social History Social History Type Response Substance Abuse Use: None. Alcohol Never Smoking Status Never smoker; Type: Cigarettes; Previous treatment: None; Exposure to Tobacco Smoke None; Cigarette Smoking Last 365 Days No; Reg Smoking Cessation Counseling No Assessment and Plan No data available for this section
--- OUTSIDE RECORDS SUMMARY | 2018-06-09 07:33 | XMS REPORT | Summary of Care ---
Author Author [facility] Organization [facility] Neurosurgery [facility] Address Unknown Phone Unavailable Encounter YURIY Monet(JOAN) [id number] Date(s): 08/03/17 - 08/03/17 [facility] Neurosurgery [facility] [address] [facility] [address], [address] [place] [phone] Discharge Disposition: Home or Self Care Attending Physician: Yasmine Jiménez Referring Physician: Bang George DO Vital Signs Most recent to 1 oldest [Reference Range]: Height 160.02 cm (08/03/17 12:49 PM) Temperature Oral 97.6 DegF [96.4-99.1 DegF] (08/03/17 12:49 PM) Blood Pressure 194/94 mmHg [90-140/60-90 mmHg] *HI* (08/03/17 12:49 PM) Peripheral Pulse 78 bpm Rate [60-100 bpm] (08/03/17 12:49 PM) Weight 106.818 kg (08/03/17 12:49 PM) Body Mass Index 41.72 m2 (08/03/17 12:49 PM) Problem List Condition Effective Dates Status Health Status Informant Meningioma(Confirmed < 02/04/17 Resolved ) Heart < 1989 Resolved attack(Confirmed) Morbid Active obesity(Confirmed) Meningioma(Confirmed Active ) Allergies, Adverse Reactions, Alerts Substance Reaction Severity Status NKDA Active Medications levothyroxine 100 mcg (0.1 mg) oral tablet 100 microgram=1 tab, PO, Daily, 0 Refill(s) Start Date: 08/03/17 Status: Ordered Linzess PO, Daily, 0 Refill(s) Start Date: 08/03/17 Status: Ordered Results No data available for this section Immunizations No data available for this section Procedures Procedure Date Related Diagnosis Body Site Stereotactic radiosurgery 02/04/17 Lithotripsy 2015 Parathyroid removal 2014 Removal - procedure Mesh 2015 Hernia repair 2000 Appendectomy 1990 Gallbladder 1990 Vein vericose removal 1985 Hysterectomy 1972 Social [...]
--- OUTSIDE RECORDS SUMMARY | 2018-06-09 07:33 | XMS REPORT | Summary of Care ---
Author Author [facility] [place] Organization [facility] [place] Address Unknown Phone Unavailable Encounter HQ Tierney(FIN) [id number] Date(s): 12/14/17 - 12/14/17 [facility] Out[facility] [place] [address] [place] [phone] Discharge Disposition: Home or Self Care Attending Physician: Marisela Bautista MD Vital Signs No data available for [...] Procedures Procedure Date Related Diagnosis Body Site Status Stereotactic radiosurgery 02/04/17 Completed Lithotripsy 2014 Completed Parathyroid removal 2014 Completed Removal - procedure Mesh 2014 Completed Hernia repair 2000 Completed Appendectomy 1990 Completed Gallbladder 1990 Completed Vein vericose removal 1985 Completed Hysterectomy 1972 Completed Social History Social History Type Response Substance Abuse Use: None. Alcohol Never Smoking Status Never smoker; Previous treatment: None; Ready to change: No; Concerns about tobacco use in household: No; Exposure to Tobacco Smoke None; Cigarette Smoking Last 365 Days No; Reg Smoking Cessation Counseling No entered on: 08/03/17 Assessment and Plan No data available for this section
--- OUTSIDE RECORDS SUMMARY | 2018-06-09 07:33 | XMS REPORT | Summary of Care ---
Author Author [facility] [place] Organization [facility] [place] Address Unknown Phone Unavailable Encounter HQ Encntr_alias(FIN) [id number] Date(s): 09/18/16 - 09/18/16 [facility] Outpatient [facility] [place] [address] [place] [phone] Discharge Disposition: Home or Self Care Attending Physician: German Hernnades MD Vital Signs No data available for [...]
--- OUTSIDE RECORDS SUMMARY | 2018-06-09 07:34 | XMS REPORT | Continuity of Care Document ---
Author Author [facility] Organization [facility] Address Unknown Phone Unavailable Care Team Providers Care Rouge Sifter And Miller Name Role Phone Loyda NGUYEN, Sage Lujan MD Admphys Loyda NGUYEN, Sage Lujan MD Attphys PCPNF PCP Unavailable Insurance Providers Guarantor NayeliSophia Address [address] [place] [address] [place] [address] Email N Payer [facility] Medicare [employer] Ppo Mm Policy Number [id number] Subscriber's Name Sophia Tyler Relationship Self / Same As Patient Group Number [id number] Group Name MEDICARE REPLACEMENT Effective Date 17 Advance Directives Directive Response Recorded Date/Time Does the Patient have an Advance Directive? No 05/19/18 10:23pm Chief Complaint and Reason for Visit Chief Complaint CHEST PAIN, N-STEMI Reason for Visit Non-STEMI (non-ST elevated myocardial infarction) Problems Medical Problem Onset Date Status Non-STEMI (non-ST elevated myocardial infarction) Unknown Acute Past Problems Medical Problem Onset Date Status Chest pain Unknown Acute Non-ST elevated myocardial infarction Unknown Acute Medications Current Home Medications Medication Dose Units Route Directions Days Qty Instructions Start Date Cholecalciferol (Vitamin D3) (Vitamin D (D3)) 5,000 Units Cap 5,000 Units Oral Daily Dicyclomine Hcl (Bentyl) 10 Mg Cap 10 Mg Oral As Needed Esomeprazole Magnesium (Nexium) 40 Mg Capcr 40 Mg Oral Daily Levothyroxine Sodium (Synthroid) 100 Mcg Tab 100 Mcg Oral Daily Before Breakfast Linaclotide (Linzess) 290 Mcg Capsule 290 Mcg Oral Daily Take 30 minutes before first meal of the day. Metoclopramide Hcl (Reglan) 10 Mg Tab 10 Mg Oral Daily Social History Social History Problem Response Recorded Date/Time Onset Date Status Hx Tobacco Use No 05/19/2018 10:23pm Not Applicable Not Applicable Hospital Discharge Instructions Current inpatient/outpatient. Discharge instructions are currently unavailable. Plan of Care Current inpatient/outpatient. The plan of care is currently unavailable. Functional Status Query Response Date Recorded Onset Within the Last 7 Days No Problem Identified May 19, 2018 10:23pm Allergies, Adverse Reactions, Alerts No known allergies. Immunizations Query Response on File Recorded Date/Time HX of Influenza Vaccine Unknown 05/19/18 10:23pm Tetanus Status Unknown 05/19/18 10:23pm Vital Signs Acute Vital Signs Vital Response Date/Time Temperature (Fahrenheit) 98.6 degrees F (97.6 - 99.5) 05/19/2018 11:53pm Pulse Rate (adult) 66 bpm (60 - 100) 05/19/2018 10:23pm Pulse Rate 69 bpm 05/19/2018 11:53pm Respiratory Rate 16 breaths per minute (12 - 24) 05/19/2018 10:23pm Respiratory Rate 19 breaths per minute 05/19/2018 11:53pm Blood Pressure Systolic 123 mm Hg (100 - 140) 05/19/2018 10:23pm Blood Pressure Systolic 158 mm Hg 05/19/2018 11:53pm Blood Pressure Diastolic 80 mm Hg (60 - 90) 05/19/2018 10:23pm Blood Pressure Diastolic 73 mm Hg 05/19/2018 11:53pm Height 5 ft 4 in 05/19/2018 9:59pm Weight 238 lb 05/19/2018 9:59pm Body Mass Index 40.9 kg/m^2 05/19/2018 9:59pm Results Laboratory Results Test Name Result Units Flags Reference Collection Date/Time Result Date/Time Comments Bedside Troponin I 0.20 ng/mL CH 0.00-0.07 05/19/2018 10:34pm 05/19/2018 10:46pm Critical value reported at bedside. POC testing performed at the bedside. Immediate notification of results given to nurse/physician at time of testing. *NOTE: ED bedside Cardiac Marker results may not correlate directly with results from Clinical Lab due to differences in methodologies. White Blood Count 12.4 10*3/uL H 4.5-11.5 05/19/2018 3:56pm 05/19/2018 4:20pm Red Blood Count 4.48 10*6/uL 3.8-5.1 05/19/2018 3:56pm 05/19/2018 4:20pm Hemoglobin 13.3 g/dL 12.0-15.2 05/19/2018 3:56pm 05/19/2018 4:20pm Hematocrit 40.5 % 34.0-45.5 05/19/2018 3:56pm 05/19/2018 4:20pm Mean Corpuscular Volume 90.4 fL 80-94 05/19/2018 3:56pm 05/19/2018 4:20pm Mean Corpuscular Hemoglobin 29.7 pg 27.0-33.0 05/19/2018 3:56pm 05/19/2018 4:20pm Mean Corpuscular Hemoglobin Concent 32.8 g/dL L 33.0-37.0 05/19/2018 3:56pm 05/19/2018 4:20pm Red Cell Distribution Width 14.6 % H 10.7-14.5 05/19/2018 3:56pm 05/19/2018 4:20pm Platelet Count 275 10*3/uL 150-450 05/19/2018 3:56pm 05/19/2018 4:20pm Mean Platelet Volume 10.2 fL 5.7-10.7 05/19/2018 3:56pm 05/19/2018 4:20pm Neutrophils (%) (Auto) 84 % H 47-75 05/19/2018 3:56pm 05/19/2018 4:20pm Lymphocytes (%) (Auto) 10 % L 25-44 05/19/2018 3:56pm 05/19/2018 4:20pm Monocytes (%) (Auto) 6 % 3-10 05/19/2018 3:56pm 05/19/2018 4:20pm Eosinophils (%) (Auto) 1 % 0-7 05/19/2018 3:56pm 05/19/2018 4:20pm Basophils (%) (Auto) 0 % 0-1 05/19/2018 3:56pm 05/19/2018 4:20pm Neutrophils # (Auto) 10.4 10*3/uL H 1.3-6.7 05/19/2018 3:56pm 05/19/2018 4:20pm Lymphocytes # (Auto) 1.2 10*3/uL L 1.4-4.1 05/19/2018 3:56pm 05/19/2018 4:20pm Monocytes # (Auto) 0.8 10*3/uL 0-1.3 05/19/2018 3:56pm 05/19/2018 4:20pm Eosinophils # (Auto) 0.1 10*3/uL 0-0.8 05/19/2018 3:56pm 05/19/2018 4:20pm Basophils # (Auto) 0.0 10*3/uL 0-0.1 05/19/2018 3:56pm 05/19/2018 4:20pm Manual Differential Not Ind 05/19/2018 3:56pm 05/19/2018 4:20pm Prothrombin Time 11.3 sec 9.4-12.5 05/19/2018 3:56pm 05/19/2018 4:21pm Reference range studies have been peformed on new reagent and reference range has been changed on 03/16/18. Prothromb Time International Ratio 1.0 Ratio 0.8-1.2 05/19/2018 3:56pm 05/19/2018 4:21pm *INR values, while recommended for monitoring all stages of oral anticoagulant therapy, may be less reliable during the initiation period of treatment. INR THERAPEUTIC RANGE: Conventional Dose=2.0 - 3.0 Intensive Dose=2.5 - 3.5 Activated Partial Thromboplast Time 29.6 sec 25.1-36.5 05/19/2018 3:56pm 05/19/2018 4:21pm Effective 12/24/17, for heparin monitoring: aPTT 57-92 seconds corresponds to heparin 0.3-0.7 IU/mL. Sodium Level 138 mmol/L 136-145 05/19/2018 3:56pm 05/19/2018 4:26pm Potassium Level 3.3 mmol/L L 3.5-5.1 05/19/2018 3:56pm 05/19/2018 4:26pm Chloride Level 105 mmol/L 98-107 05/19/2018 3:56pm 05/19/2018 4:26pm Carbon Dioxide Level 21 mmol/L 21-32 05/19/2018 3:56pm 05/19/2018 4:26pm Anion Gap 15 H 5-14 05/19/2018 3:56pm 05/19/2018 4:26pm Blood Urea Nitrogen 20 mg/dL 6-20 05/19/2018 3:56pm 05/19/2018 4:26pm Creatinine 1.0 mg/dL 0.6-1.3 05/19/2018 3:56pm 05/19/2018 4:26pm Estimat Glomerular Filtration Rate 59 L 60-110 05/19/2018 3:56pm 05/19/2018 4:26pm Stages of Patients with Estimated GFR Known Kidney Disease (ml/min/1.73 sq.meters) Stage 1 - Kidney damage w/normal 90 mL/min or greater or increased GFR Stage 2 - Kidney disease w/mildly 60-89 mL/min decreased GFR Stage 3 - Moderately decreased GFR 30-59 mL/min Stage 4 - Severely decreased GFR 15-29 mL/min Stage 5 - Kidney failure 14 mL/min or less To estimate the GFR for Americans, multiply the result provided by 1.21. BUN/Creatinine Ratio 20 05/19/2018 3:56pm 05/19/2018 4:26pm Glucose Level 149 mg/dL H 60-100 05/19/2018 3:56pm 05/19/2018 4:26pm Calculated Osmolality 281 mOsm/kg 05/19/2018 3:56pm 05/19/2018 4:26pm Calcium Level 8.5 mg/dL 8.5-10.1 05/19/2018 3:56pm 05/19/2018 4:26pm Procedures Procedure Status Date Provider(s) ECG (electrocardiogram) Active 05/19/18 BRYAN ROB MD Computed tomography angiography of pulmonary artery Completed 05/19/18 RBYAN ROB MD X-ray of chest, single view Completed 05/19/18 BRYAN ROB MD Computed tomography of head or brain without contrast Completed 05/19/18 BRYAN ROB MD ECG (electrocardiogram) Active 05/19/18 SHARRI MULLIGAN MD ECG (electrocardiogram) Active 05/20/18 SHARRI MULLIGAN MD ECG (electrocardiogram) Active 05/20/18 SHARRI MULLIGAN MD Encounters Encounter Location Arrival/Admit Date Discharge/Depart Date Attending Provider Admitted Inpatient [facility] 05/19/18 10:42pm SAGE YEN MD Departed Emergency Room [facility] 05/19/18 3:31pm 05/19/18 7:44pm BRYAN ROB MD Recent Diagnosis Non-STEMI (non-ST elevated myocardial infarction)
--- OUTSIDE RECORDS SUMMARY | 2018-06-09 07:34 | XMS REPORT | Summary of Care ---
Author Author [facility] [place] Organization [facility] Neuro[facility] [place] Address Unknown Phone Unavailable Encounter HQ Maxine_anjel(FIN) [id number] Date(s): 02/25/18 - 02/26/18 [facility] Neurosurgery [facility] [place] [address], [address] [place], [place] [address] [phone] Vital Signs No data available for this [...]
--- OUTSIDE RECORDS SUMMARY | 2018-06-09 07:34 | XMS REPORT | Continuity of Care Document ---
Author Author [facility] Organization [facility] Address Unknown Phone Unavailable Care Team Providers Care Yarn Mercerizer Operator Helper Name Role Phone Loyda NGUYEN, Sage Lujan MD Admphys Loyda NGUYEN, Sage Lujan MD Attphys PCPNF PCP Unavailable Insurance Providers Guarantor NayeliSophia Address [address] [place] [address] [place] [address] Email N Payer [facility] Medicare [employer] Ppo Mm Policy Number [id number] Subscriber's Name Sophia Tyler Relationship Self / Same As Patient Group Number [id number] Group Name MEDICARE REPLACEMENT Effective Date 17 Advance Directives Directive Response Recorded Date/Time Does the Patient have an Advance Directive? No 05/20/18 12:50am Chief Complaint and Reason for Visit Chief Complaint CHEST PAIN, N-STEMI Reason for Visit Hypothyroidism Benign meningioma of brain Vitamin D deficiency Hypothyroidism GERD (gastroesophageal reflux disease) Hx of myocardial infarction CAD (coronary artery disease) Chest pain Problems Medical Problem Onset Date Status Benign meningioma of brain Unknown Chronic Vitamin D deficiency Unknown Chronic Hypothyroidism Unknown Chronic GERD (gastroesophageal reflux disease) Unknown Chronic Hx of myocardial infarction Unknown Resolved CAD (coronary artery disease) Unknown Chronic Chest pain Unknown Past Problems Medical Problem Onset Date Status Chest pain Unknown Acute Non-ST elevated myocardial infarction Unknown Acute Non-STEMI (non-ST elevated myocardial infarction) Unknown Acute Medications Current Home Medications Medication Dose Units Route Directions Days Qty Instructions Start Date Amlodipine Besylate (Norvasc) 5 Mg Tab 5 Mg Oral Daily 30 Tablet 05/21/18 Atorvastatin Calcium (Lipitor) 20 Mg Tab 20 Mg Oral Bedtime 30 Tablet 05/21/18 Cholecalciferol (Vitamin D3) (Vitamin D (D3)) 5,000 [...] 10 Mg Tab 10 Mg Oral Daily Nitroglycerin (Nitrostat) 0.4 Mg Subl 0.4 Mg Sublingual Every 5 Minutes X 3 Doses as needed for Chest Pain Social History Social History Problem Response Recorded Date/Time Onset Date Status Hx Tobacco Use No 05/20/2018 2:15pm Not Applicable Not Applicable Smoking Status Start Date Stop Date Never Smoker Hospital Discharge Instructions Patient Instructions Physician Instructions Nursing Instructions Discharge Transportation: Private Automobile Accompanied By: Family Belongings Sent Home with Patient: Yes Ejection Fraction: 50 % Smoking Cessation Education Provided: Non-Smoker Additional Discharge Information: FOLLOW UP APPOINTMENT JUNE 04, 2018 AT 10 AM WITH JALYN VALADEZ FOLLOW UP WITH YOUR FAMILY DOCTOR IN 1-2 WEEKS. TAKE MEDICATIONS PRESCRIBED Pt/Fm/Caregiver Expressed Understanding of Portal Enrollment: No Pt/Family/Caregiver Received Discharge Home Medication List: Yes Prescription(s) Given: Yes Discharge Care Plan #1 Problem: Pain Goal: FREE OF CHEST PAIN Instructions: KEEP SCHEDULED MD APPOINTMENT. TAKE MEDS PRESCRIBED. NOTIFY MD OF ANY CHEST PAIN, FEVER, SHORTNESS OF BREATH OR ANY UNUSUAL PROBLEMS GO TO NEAREST ER. Plan of Care Discharge Date 05/21/18 5:42pm Disposition HOME, SELF-CARE 01 Instructions/Education Provided Heart Healthy Diet Chest Pain Coronary Heart Disease in Women Forms Provided Antimicrobial Stewardship General Discharge Instructions Prescriptions See Medication Section Functional Status Query Response Date Recorded Onset Within the Last 7 Days No Problem Identified May 20, 2018 12:50am Allergies, Adverse Reactions, Alerts No known allergies. Immunizations Query Response on File Recorded Date/Time HX of Influenza Vaccine Unknown 05/19/18 10:23pm Tetanus Status Unknown 05/19/18 10:23pm Vital Signs Acute Vital Signs Vital Response Date/Time Temperature (Fahrenheit) 98.9 degrees F (97.6 - 99.5) 05/21/2018 1:25pm Pulse Rate (adult) 70 bpm (60 - 100) 05/21/2018 1:25pm Pulse Rate 69 bpm 05/19/2018 11:53pm Respiratory Rate 18 breaths per minute (12 - 24) 05/21/2018 1:25pm Respiratory Rate 19 breaths per minute 05/19/2018 11:53pm Blood Pressure Systolic 94 mm Hg (100 - 140) 05/21/2018 1:25pm Blood Pressure Systolic 158 mm Hg 05/19/2018 11:53pm Blood Pressure Diastolic 62 mm Hg (60 - 90) 05/21/2018 1:25pm Blood Pressure Diastolic 73 mm Hg 05/19/2018 11:53pm Height 5 ft 4 in 05/19/2018 9:59pm Weight 219.56 lb 05/21/2018 6:00am Body Mass Index 37.7 kg/m^2 05/21/2018 6:00am Results Laboratory Results Test Name Result Units Flags Reference Collection Date/Time Result Date/Time Comments Troponin T < 0.01 ng/mL 0.00-0.03 05/20/2018 6:12am 05/20/2018 7:07am Troponin T Interpretation: 0-0.03 ng/mL Negative for Myocardial Injury. Exogenous Biotin may cause false decrease in this test. . Bedside Troponin I 0.20 ng/mL CH 0.00-0.07 [...] Procedures Procedure Status Date Provider(s) ECG (electrocardiogram) Completed 05/19/18 BRYAN ROB MD Computed tomography angiography of pulmonary artery Completed 05/19/18 BRYAN ROB MD X-ray of chest, single view Completed 05/19/18 BRYAN ROB MD Computed tomography of head or brain without contrast Completed 05/19/18 BRYAN ROB MD ECG (electrocardiogram) Completed 05/19/18 SHARRI MULLIGAN MD ECG (electrocardiogram) Completed 05/20/18 SHARRI MULLIGAN MD ECG (electrocardiogram) Completed 05/20/18 SHARRI MULLIGAN MD Request For Service Active 05/20/18 CYNDI GUPTA DO ECG (electrocardiogram) Completed 05/21/18 CYNDI GUPTA DO Cardiac Rehab Assess Count Onl Completed 05/21/18 CYNDI GUPTA DO Education Stat Only Completed 05/21/18 CYNDI GUPTA DO Visit Stat Only Completed 05/21/18 CYNDI GUPTA DO Visit Stat Only Completed 05/21/18 CYNDI GUPTA DO Encounters Encounter Location Arrival/Admit Date Discharge/Depart Date Attending Provider Discharged Inpatient [facility] [place] 05/19/18 10:42pm 05/21/18 5:42pm SAGE YEN MD Departed Emergency Room [facility], [place] 05/19/18 3:31pm 05/19/18 7:44pm BRYAN ROB MD Recent Diagnosis Hypothyroidism Benign meningioma of brain Vitamin D deficiency Hypothyroidism GERD (gastroesophageal reflux disease) Hx of myocardial infarction
[2018-06-09] MEDS ORDERED: CEFAZOLIN SOD 2 GM/D5W 50ML 50 ML IV ONE (08:19)
[2018-06-09] MEDS ORDERED: BUPIVACAINE HCL 0.5% INJ 30 ML VIAL INJ ONE (09:51)
[2018-06-09] MEDS ORDERED: BUPIVACAINE 0.25% 30ML SDV INJ ONE (09:51)
[2018-06-09] MEDS ORDERED: ONDANSETRON HCL INJ 2 MG/ML VIAL IV PRN (11:15)
[2018-06-09] MEDS ORDERED: MORPHINE SULFATE 5 MG/ML VIAL IV PRN (11:15)
[2018-06-09] MEDS ORDERED: FENTANYL CITRATE/PF 100MCG/2 ML INJ ONE ×2 (11:25→18:05)
[2018-06-09 12:24] VITALS: BP 185/83
[2018-06-09] MEDS: DEXTROSE 5%/LACTATED RINGERS 1,000 ML IV SCH ×2 (12:40→19:52)
--- NOTE | 2018-06-09 12:43 | Operative Report ---
DATE OF PROCEDURE: June 09, 2018 PREOPERATIVE DIAGNOSES 1. Gastroesophageal reflux disease. 2. Hiatal hernia. POSTOPERATIVE DIAGNOSES 1. Gastroesophageal reflux disease. 2. Hiatal hernia. PROCEDURES PERFORMED 1. Diagnostic laparoscopy. 2. Laparoscopic repair of hiatal hernia with fundoplication. LEAD NETWORK ARCHITECT: None. ANESTHESIA: General endotracheal. INDICATIONS AND FINDINGS: Patient is a 68-year-old female with complaints of left upper quadrant abdominal pain and reflux symptoms. Workup revealed a hiatal hernia. At surgery patient was found to have a moderate-sized hiatal hernia. There were some adhesions in the midline involving omentum. TECHNIQUE: After adequate general endotracheal anesthesia with patient in supine position, the abdomen was prepped and draped in sterile fashion with [place] solution in the left side of the abdomen away from the area of the previous surgery just above the level of the umbilicus. Skin and subcutaneous tissue were infiltrated with 0.5% Marcaine. A transverse incision was made. The abdominal wall was elevated, and a Veress needle was introduced. Pneumoperitoneum was then created. A 10 mm trocar and cannula was then passed through this wound. Laparoscopic camera was introduced. Initial laparoscopy revealed adhesions involving omentum. A 10 mm trocar and cannula was placed in the anterior axillary line below the costal margin. The adhesions in the midline involving omentum were lysed completely across the midline to the area where the surgery was to be done so that additional trocars could be placed. All these adhesions involved the omentum. A 10 mm trocar and cannula was placed through the falciform ligament, a 10 mm trocar and cannula was placed just to the left of the midline above the level of the umbilicus, and a 5 mm trocar and cannula was placed to the left of the midline and subxiphoid. The left lobe of the liver was elevated. The fundus of the stomach was grasped and retracted inferiorly. Lesser omentum was then divided with the LigaSure device, exposing the esophageal hiatus. Peritoneal attachments to the right side of the hiatus were divided with the LigaSure device, exposing the esophagus. There was a moderate hiatal hernia. The anterior peritoneal attachments were also divided with the LigaSure device. Fundus of the stomach was then mobilized by dividing the short gastric vessels and peritoneal attachments. This was also done with the LigaSure device, freeing the stomach from the spleen and also freeing it from the left side of the esophageal hiatus. Once the esophageal hiatus was completely delineated, it was encircled with a [place] drain. The esophageal hiatus was then closed posterior to the esophagus with interrupted sutures using 0 Ethibond Endoknots. The fundus of the stomach was then passed posterior to the esophagus. A 56-Ind[place]ian esophageal dilator was then passed during dissection, and care was taken not to injure the vagus nerves. From the left side of the abdomen, the stomach was brought anteriorly and sutures taken from the stomach to the wall of the esophagus to the stomach to complete 360-degree fundoplication. This was done with 0 Ethibond Endoknots with interrupted sutures over a distance of approximately 2.5 cm. Once the fundoplication was completed, the esophageal dilator was removed. The wound was irrigated with saline, inspected for hemostasis, which was seen to be adequate. Instruments and cannulas were then removed. Pneumoperitoneum was evacuated. Wounds were then closed, fascia in the larger trocar wounds closed with 0 Vicryl, skin to all wounds closed with maren. Sterile dressings applied to each wound. The patient tolerated the procedure well. Estimated blood loss was 75 mL. There were no complications. All counts were correct. Patient was taken to the recovery room in satisfactory condition. Job#: [id number] EV cc:SHELL HICKS MD
[2018-06-09 12:54] VITALS: BP 185/83
[2018-06-09] MEDS: METOCLOPRAMIDE HCL 10 MG TAB PO SCH ×2 (13:00→16:08)
[2018-06-09] MEDS: MORPHINE SULFATE INJ 4 MG/ML INJ IV PRN ×3 (14:00→23:08)
[2018-06-09 15:09] VITALS: BP 121/57
[2018-06-09] MEDS: PANTOPRAZOLE SOD 40 MG TABEC PO SCH (16:00)
[2018-06-09] MEDS ORDERED: ONDANSETRON HCL INJ 2 MG/ML VIAL ONE (17:14)
[2018-06-09] MEDS ORDERED: SEVOFLURANE INHAL SOLN 250 ML PEN BTL ONE (17:14)
[2018-06-09] MEDS ORDERED: ROCURONIUM BROMIDE 10 MG/ML 5ML VIAL ONE (17:14)
[2018-06-09] MEDS ORDERED: LIDOCAINE HCL 2% LOCAL INJ 5 ML SDV VIAL INJ ONE (17:14)
[2018-06-09] MEDS ORDERED: GLYCOPYRROLATE INJ 1MG/ 5 ML SYR ONE (17:14)
[2018-06-09] MEDS ORDERED: PROPOFOL IV EMULSION 10 MG/ML 20 ML VIAL ONE (17:14)
[2018-06-09] MEDS ORDERED: DEXAMETHASONE SOD PHOS INJ 4 MG/ML VIAL ONE (17:14)
[2018-06-09] MEDS ORDERED: NEOSTIGMINE 5 MG/5ML SYR ONE (17:14)
[2018-06-09] MEDS ORDERED: MIDAZOLAM HCL 2 MG/2 ML VIAL ONE (18:05)
[2018-06-09 20:00] VITALS: BP 131/67
[2018-06-09] MEDS ORDERED: ATORVASTATIN 20 MG TAB PO SCH (21:00)
[2018-06-10] VITALS: BP 134/61
[2018-06-10 04:00] VITALS: BP 126/63
[2018-06-10 04:58] LABS: BASOPHILS % 0.2 % (0.0-1.0); HEMATOCRIT 35.1 % (34.2-44.1); HEMOGLOBIN 11.6 g/dL (12.0-16.0); LYMPHOCYTES # (AUTO) 1.2 (1.0-3.2); LYMPHOCYTES % 10.3 % (18.0-39.1); MEAN CORPUSCULAR VOLUME 90.7 fL (81-99); MONOCYTES # (AUTO) 1.2 (0.2-0.8); MONOCYTES % 9.7 % (4.4-11.3); NEUTROPHILS # (AUTO) 9.5 (2.1-6.9); NEUTROPHILS % 79.5 % (38.7-80.0); PLATELET COUNT 220 x10e3/uL (140-360); RED BLOOD COUNT 3.87 x10e6/uL (3.6-5.1); RED CELL DISTRIBUTION WIDTH 13.3 % (11.7-14.4)
[2018-06-10] MEDS: MORPHINE SULFATE INJ 4 MG/ML INJ IV PRN (05:28)
[2018-06-10] MEDS: DEXTROSE 5%/LACTATED RINGERS 1,000 ML IV SCH (05:28)
[2018-06-10 07:15] VITALS: BP 148/57
[2018-06-10] MEDS: METOCLOPRAMIDE HCL 10 MG TAB PO SCH (08:30)
[2018-06-10] MEDS: PANTOPRAZOLE SOD 40 MG TABEC PO SCH (08:30)
[2018-06-10] MEDS ORDERED: ASPIRIN 81 MG CHEW TAB PO SCH (09:00)
[2018-06-10] MEDS ORDERED: AMLODIPINE BESYLATE 5 MG TAB PO SCH (09:00)
== END 2018-06-10 10:00 | disposition home or self-care (01) ==
LOC: OR 07:26 → PACU V 11:15 → IMCU 12:34
PROVIDERS: ADMIT Surgery; ATTEND Surgery
DX: K21.9 Gastro-esophageal reflux disease without esophagitis (principal); K44.9 Diaphragmatic hernia without obstruction or gangrene; E78.00 Pure hypercholesterolemia, unspecified; I25.2 Old myocardial infarction; Z79.82 Long term (current) use of aspirin
CPT/HCPCS: 36415 ×2; 43281; 71046; 80048; 85025 ×2; 93005; G0378 ×2; J1100; J2001; J2250; J2270 ×3; J2405; J3490; J7120 ×2; S0164 ×2; J0690

== ENCOUNTER → 2019-03-30 | Day surgery (SDC) | payer MEDICARE ==
[2019-03-25 10:56] LABS: BASOPHILS % 0.7 % (0.0-1.0); EOSINOPHILS # (AUTO) 0.1 (0.0-0.4); EOSINOPHILS % 1.9 % (0.0-6.0); HEMATOCRIT 36.1 % (34.2-44.1); HEMOGLOBIN 12.1 g/dL (12.0-16.0); LYMPHOCYTES # (AUTO) 1.6 (1.0-3.2); LYMPHOCYTES % 27.2 % (18.0-39.1); MEAN CORPUSCULAR HEMOGLOBIN 31.2 pg (28-32); MEAN CORPUSCULAR HGB CONC 33.5 g/dL (31-35); MONOCYTES # (AUTO) 0.6 (0.2-0.8); MONOCYTES % 9.5 % (4.4-11.3); NEUTROPHILS # (AUTO) 3.5 (2.1-6.9); NEUTROPHILS % 60.4 % (38.7-80.0); PLATELET COUNT 214 x10e3/uL (140-360); RED BLOOD COUNT 3.88 x10e6/uL (3.6-5.1); RED CELL DISTRIBUTION WIDTH 13.7 % (11.7-14.4)
[2019-03-25 11:20] LABS: ANION GAP 14.8 mmol/L (8-16); BLOOD UREA NITROGEN 10 mg/dL (7-26); BUN/CREATININE RATIO 14 (6-25); CALCIUM 9.3 mg/dL (8.4-10.2); CARBON DIOXIDE 26 mmol/L (22-29); CHLORIDE 106 mmol/L (98-107); CREATININE, SERUM 0.72 mg/dL (0.57-1.11); EST GLOMERULAR FILTRATION RATE > 60 ML/MIN (60-); GLUCOSE 96 mg/dL (74-118); POTASSIUM 3.8 mmol/L (3.5-5.1); SODIUM 143 mmol/L (136-145)
--- NOTE | 2019-03-25 15:05 | Diagnostic Imaging Report ---
EXAMINATION: CHEST 2 VIEWS INDICATION: Pre-operative COMPARISON: None FINDINGS: LINES/TUBES:None LUNGS:The lungs are well-inflated. No focal consolidation or pulmonary edema. Nodular opacity overlying the lateral lower left lung zone likely represents nipple shadow. PLEURA:No pleural effusion or pneumothorax. MEDIASTINUM:The cardiomediastinal silhouette appears normal in size and shape. Atherosclerotic calcifications of the thoracic aorta. BONES/SOFT TISSUES:No acute osseous injury. Surgical clips project over the neck. Degenerative changes of the visualized spine. ABDOMEN:No free air under the diaphragm. Status post cholecystectomy. IMPRESSION: No focal pneumonia or pulmonary edema. Signed by: Sondra Echavarria MD on 03/25/2019 3:02 PM
[~2019-03-30] MED LIST changes: +ACETAMINOPHEN 1000 MG/100 ML 100 ML IV ONE; +ACETAMINOPHEN 1000 MG/100 ML IV ONE; +ACETAMINOPHEN/CODEINE 300MG - 30MG TAB ONE; +BUPIVACAINE HCL 0.5% INJ 30 ML VIAL INJ ONE; +CEFAZOLIN SOD 1 GM/NS 50ML 100 ML IV ONE; +DEXAMETHASONE SOD PHOS INJ 4 MG/ML VIAL ONE; +FENTANYL CITRATE/PF 100MCG/2 ML INJ ONE; +KEPPRA500 MG PO; +LIDOCAINE HCL 2% LOCAL INJ 5 ML SDV VIAL INJ ONE; +ONDANSETRON HCL INJ 2MG/ML 2ML 2 MG/ML VIAL ONE; +PROPOFOL IV EMULSION 10 MG/ML 20 ML VIAL ONE; +ROCURONIUM BROMIDE 10 MG/ML 5ML VIAL ONE; +SEVOFLURANE INHAL SOLN 250 ML PEN BTL ONE; +SUGAMMADEX SODIUM 200 MG/2 ML VIAL IV ONE
--- OUTSIDE RECORDS SUMMARY | 2019-03-30 07:59 | XMS REPORT | Summary of Care ---
Author Author [facility] Organization [facility] Address Unknown Phone Unavailable Encounter YURIY Monet(JOAN) [id number] Date(s): 11/06/18 - 11/09/18 [facility] [address] [employer] provided by [employer] [facility] [employer] [place] [address]- Discharge Disposition: Home or Self Care Attending Physician: Pauly De Guzman MD Admitting Physician: Pauly De Guzman MD Vital Signs 1 2 3 Most recent to oldest [Reference Range]: 160.02 cm (11/07/18 2:17 PM) 160.02 cm (11/06/18 8:51 PM) Height 97.9 DegF (11/09/18 3:15 PM) 97.4 DegF (11/09/18 11:36 AM) 97.3 DegF (11/09/18 7:50 AM) Temperature Oral [96.4-99.1 DegF] 121/75 mmHg (11/09/18 3:15 PM) 138/77 mmHg (11/09/18 11:36 AM) 118/67 mmHg (11/09/18 7:50 AM) Blood Pressure [90-140/60-90 mmHg] 18 BRMIN (11/09/18 3:15 PM) 18 BRMIN (11/09/18 11:36 AM) 18 BRMIN (11/09/18 7:50 AM) Respiratory Rate [14-20 BRMIN] 86 bpm (11/09/18 3:15 PM) 75 bpm (11/09/18 11:36 AM) 67 bpm (11/09/18 7:50 AM) Peripheral Pulse Rate [60-100 bpm] 85.909 kg (11/09/18 10:32 AM) 85.909 kg (11/07/18 2:17 PM) 85 kg (3/16/19 8:51 PM) Weight 33.55 m2 (11/07/18 2:17 PM) 33.19 m2 (11/06/18 8:51 PM) Body Mass Index Problem List Condition Effective Dates Status Health Status Informant Acute UTI(Confirmed) Active Gait Active instability(Confirme d) Allergies, Adverse Reactions, Alerts Substance Reaction Severity Status NKDA Active Medications amLODIPine 5 mg, 1 tab, Route: PO, Drug form: TAB, Daily, Dosing Weight 85, kg, Start date: 11/08/18 9:00:00 CDT, Duration: 30 day, Stop date: 12/07/18 9:00:00 CDT Notes: (Same as: Norvasc) Start Date: 11/08/18 Stop Date: 11/09/18 Status: Discontinued amLODIPine 5 mg, PO, Daily, 0 Refill(s) Start Date: 11/07/18 Status: Ordered aspirin 81 mg, 1 tab, Route: PO, Drug form: CHEWTAB, Daily, Dosing Weight 85, kg, Start date: 11/07/18 11:07:00 CDT, Duration: 30 day, Stop date: 12/07/18 9:00:00 CDT Notes: Take with food. Start Date: 11/07/18 Stop Date: 11/09/18 Status: Discontinued aspirin 81 mg, PO, Daily, 0 Refill(s) Start Date: 11/07/18 Status: Ordered Ativan 1 mg, 1 tab, Route: PO, Drug form: TAB, ONCE, Dosing Weight 85, kg, Priority: ST AT, Start date: 11/07/18 4:44:00 CDT, Stop date: 11/07/18 4:44:00 CDT Notes: (Same as: Ativan) Start Date: 11/07/18 Stop Date: 11/07/18 Status: Ordered atorvastatin 20 mg, 1 tab, Route: PO, Drug form: TAB, Bedtime, Dosing Weight 85, kg, Start da te: 11/07/18 21:00:00 CDT, Duration: 30 day, Stop date: 12/06/18 21:00:00 CDT Notes: (Same As: Lipitor) Start Date: 11/07/18 Stop Date: 11/09/18 Status: Discontinued atorvastatin 20 mg, PO, Bedtime, 0 Refill(s) Start Date: 11/07/18 Status: Ordered Bentyl 20 mg oral tablet 20 mg=1 tab, PO, BID, PRN, 0 Refill(s) Start Date: 11/07/18 Status: Ordered calcium gluconate + Sodium Chloride 0.9% IV 50 mL 1,000 mg, 10 mL, Route: IVPB, Drug form: INJ, ONCE, Dosing Weight 85, kg, Start date: 11/07/18 11:05:00 CDT, Stop date: 11/07/18 11:05:00 CDT Notes: WASTE: F/P - Sink; E - Municipal Trash Bin Start Date: 11/07/18 Stop Date: 11/07/18 Status: Completed Cipro 500 mg oral tablet 500 mg=1 tab, PO, Q12H, X 5 day, # 10 tab, 0 Refill(s) Start Date: 11/09/18 Stop Date: 11/14/18 Status: Ordered Depakote ER 500 mg oral tablet, extended release 1,000 mg, 2 tab, Route: PO, Drug form: ERTAB, Bedtime, Dosing Weight 85, kg, Sta rt date: 11/08/18 21:00:00 CDT, Duration: 30 day, Stop date: 12/07/18 21:00:00 C DT Notes: (Same as: Depakote ER) Once daily dosing; indicated for migraines. Dival proex sodium extended-release tab. Do not chew or crush. "Do Not Crush" Start Date: 11/08/18 Stop Date: 11/09/18 Status: Discontinued Depakote ER 500 mg oral tablet, extended release 1,000 mg=2 tab, PO, Bedtime, # 60 tab, 1 Refill(s) Start Date: 11/07/18 Status: Ordered Depakote ER 500 mg oral tablet, extended release 1,000 mg, 2 tab, Route: PO, Drug form: ERTAB, Bedtime, Dosing Weight 85, kg, Sta rt date: 11/07/18 21:00:00 CDT, Duration: 30 day, Stop date: 12/06/18 21:00:00 C DT Notes: (Same as: Depakote ER) Once daily dosing; indicated for migraines. Dival proex sodium extended-release tab. Do not chew or crush. "Do Not Crush" Start Date: 11/07/18 Stop Date: 11/07/18 Status: Canceled heparin 5,000 unit, 1 mL, Route: SUB-Q, Drug form: INJ, Q8H, Dosing Weight 85, kg, Start date: 11/07/18 16:00:00 CDT, Duration: 30 day, Stop date: 12/07/18 8:00:00 CDT Notes: porcine heparin Start Date: 11/07/18 Stop Date: 11/09/18 Status: Discontinued ibuprofen 800 mg, prn, 0 Refill(s) Start Date: 11/07/18 Stop Date: 11/09/18 Status: Discontinued levothyroxine 100 microgram, 1 tab, Route: PO, Drug form: TAB, Daily, Dosing Weight 85, kg, St art date: 11/08/18 9:00:00 CDT, Duration: 30 day, Stop date: 12/07/18 9:00:00 CD T Notes: Take 1 hour before or 2 hours after meal; Enteral feeds may interefere wi th the absorption of this medication. (Same as:Levothroid, Synthroid) Start Date: 11/08/18 Stop Date: 11/09/18 Status: Discontinued levothyroxine 100 mcg (0.1 mg) oral tablet 100 microgram=1 tab, PO, Daily, # 30 tab, 0 Refill(s) Start Date: 11/07/18 Status: Ordered Linzess 325 mcg, PO, Daily, 325mcg, 0 Refill(s) Start Date: 11/07/18 Status: Ordered magnesium sulfate 2 gm in Water 50 ml 2 gm, 50 mL, Route: IVPB, Drug form: INJ, ONCE, Dosing Weight 85, kg, Start date : 11/07/18 7:05:00 CDT, Stop date: 11/07/18 7:05:00 CDT Notes: WASTE: F/P - Sink; E - Municipal Trash Bin Start Date: 11/07/18 Stop Date: 11/07/18 Status: Completed Occupational Therapy See Instructions, MISC, ONCALL, Evaluate and Treat 3 times per week for 4 weeks, # 1 unit, 0 Refill(s) Start Date: 11/09/18 Status: Ordered Physical Therapy See Instructions, MISC, ONCALL, Evaluate and Treat 3 times per week for 4 weeks, # 1 unit, 0 Refill(s) Start Date: 11/09/18 Status: Ordered potassium chloride 40 mEq, 30 mL, Route: PO, Drug form: LIQ, ONCE, Dosing Weight 85, kg, Electrolyt e replacement, Start date: 11/07/18 11:04:00 CDT, Stop date: 11/07/18 11:04:00 C DT Notes: (Same as: Potassium Chloride) Start Date: 11/07/18 Stop Date: 11/07/18 Status: Completed potassium chloride 20 mEq/15 mL oral liquid 60 mEq, 45 mL, Route: PO, Drug form: LIQ, ONCE, Dosing Weight 85, kg, Priority: STAT, Start date: 11/07/18 1:17:00 CDT, Stop date: 11/07/18 1:17:00 CDT Notes: (Same as: Potassium Chloride) Start Date: 11/07/18 Stop Date: 11/07/18 Status: Completed Rocephin 1 gm, Route: IVPB, Drug form: PDR/INJ, [id number], Dosing Weight 85, kg, Start date : 11/09/18 8:00:00 CDT, Duration: 2 day, Stop date: 11/10/18 8:00:00 CDT, ABX In dication: Urinary Tract Infection Notes: (Same As: Rocephin).Use with 100 mL NS and infuse over 30 min MEDICA TION WASTE Product Size: 1000 mgProduct Wasted: ___ mg Start Date: 11/09/18 Stop Date: 11/09/18 Status: Discontinued Rocephin 1 gm, Route: IVP, Drug form: PDR/INJ, ONCE, Dosing Weight 85, kg, Priority: STAT , Start date: 11/07/18 7:05:00 CDT, Stop date: 11/07/18 7:05:00 CDT, ABX Indicat ion: Urinary Tract Infection Notes: (Same As: Rocephin).Use with 100 mL NS and infuse over 30 min MEDICA TION WASTE Product Size: 1000 mgProduct Wasted: _0__ mg Start Date: 11/07/18 Stop Date: 11/07/18 Status: Completed Vitamin D3 2000 intl units oral tablet 2,000 IntlUnit=1 tab, PO, Daily, 0 Refill(s) Start Date: 11/07/18 Status: Ordered Results BLOOD BANK RESULTS 1 2 3 Most recent to oldest [Reference Range]: A POS *Unknown* (11/07/18 12:36 AM) ABO/Rh Negative (11/07/18 12:36 AM) Antibody Scrn ELECTROLYTES 1 2 3 Most recent to oldest [Reference Range]: 146 mEq/L *HI* (11/09/18 3:40 AM) 148 mEq/L *HI* (11/08/18 12:41 AM) 146 mEq/L *HI* (11/07/18 9:21 AM) Sodium Lvl [135-145 mEq/L] 3.3 mEq/L *LOW* (11/09/18 3:40 AM) 3.3 mEq/L *LOW* (11/08/18 12:41 AM) 3.4 mEq/L *LOW* (11/07/18 9:21 AM) Potassium Lvl [3.5-5.1 mEq/L] 108 mEq/L (11/09/18 3:40 AM) 113 mEq/L *HI* (11/08/18 12:41 AM) 110 mEq/L *HI* (11/07/18 9:21 AM) Chloride Lvl [95-109 mEq/L] 30 mEq/L (11/09/18 3:40 AM) 26 mEq/L (11/08/18 12:41 AM) 29 mEq/L (11/07/18 9:21 AM) CO2 [24-32 mEq/L] 11.3 mEq/L (11/09/18 3:40 AM) 12.3 mEq/L (11/08/18 12:41 AM) 10.4 mEq/L (11/07/18 9:21 AM) AGAP [10.0-20.0 mEq/L] CHEM PANEL 1 2 3 Most recent to oldest [Reference Range]: 0.74 mg/dL (11/09/18 3:40 AM) 0.64 mg/dL (11/08/18 12:41 AM) 0.89 mg/dL (11/07/18 9:21 AM) Creatinine Lvl [0.50-1.40 mg/dL] 84 mL/min/1.73m2 1 *NA* (11/09/18 3:40 AM) 93 mL/min/1.73m2 2 *NA* (11/08/18 12:41 AM) 67 mL/min/1.73m2 3 *NA* (11/07/18 9:21 AM) eGFR 11 mg/dL (11/09/18 3:40 AM) 11 mg/dL (11/08/18 12:41 AM) 9 mg/dL (11/07/18 9:21 AM) BUN [7-22 mg/dL] 10 (11/07/18 9:21 AM) B/C Ratio [6-25] 84 mg/dL (11/09/18 3:40 AM) 79 mg/dL (11/08/18 12:41 AM) 99 mg/dL (11/07/18 9:21 AM) Glucose Lvl [70-99 mg/dL] 6.7 g/dL (11/07/18 9:21 AM) Total Protein [6.4-8.4 g/dL] 2.8 g/dL *LOW* (11/07/18 9:21 AM) Albumin Lvl [3.5-5.0 g/dL] 3.9 g/dL (11/07/18 9:21 AM) Globulin [2.7-4.2 g/dL] 0.7 (11/07/18 9:21 AM) A/G Ratio [0.7-1.6] 8.9 mg/dL (11/09/18 3:40 AM) 8.9 mg/dL (11/09/18 3:40 AM) 8.4 mg/dL *LOW* (11/08/18 12:41 AM) Calcium Lvl [8.5-10.5 mg/dL] 4.2 mg/dL (11/09/18 3:40 AM) 4.4 mg/dL (11/08/18 12:41 AM) Phosphorus [2.5-4.5 mg/dL] 2.2 mg/dL (11/09/18 3:40 AM) 2.3 mg/dL (11/08/18 12:41 AM) 2.7 mg/dL *HI* (11/07/18 9:21 AM) Magnesium Lvl [1.8-2.4 mg/dL] 14 unit/L (11/07/18 9:21 AM) ALT [0-65 unit/L] 13 unit/L (11/07/18 9:21 AM) AST [0-37 unit/L] 90 unit/L (11/07/18 9:21 AM) Alk Phos [39-136 unit/L] 0.4 mg/dL (11/07/18 9:21 AM) Bili Total [0.2-1.3 mg/dL] 1Result Comment: The eGFR is calculated using [...] be mul tiplied by the estimated BMI. 2Result Comment: The eGFR is calculated using the [...] be mul tiplied by the estimated BMI. 3Result Comment: The eGFR is calculated using the [...] be mul tiplied by the estimated BMI. ANEMIA STUDY 1 2 3 Most recent to oldest [Reference Range]: 273 pg/mL (11/07/18 12:50 PM) Vitamin B12 Lvl [254-1320 pg/mL] 4.1 ng/mL (11/07/18 12:50 PM) Folate Lvl [>=3.0 ng/mL] PARATHYROID PROFILE 1 2 3 Most recent to oldest [Reference Range]: 1.13 mMol/L (11/08/18 12:41 AM) 1.07 mMol/L (11/07/18 6:08 PM) 1.03 mMol/L *LOW* (11/07/18 9:21 AM) Ca Ion WB [1.05-1.25 mMol/L] 1.15 mMol/L (11/08/18 12:41 AM) 1.11 mMol/L (11/07/18 6:08 PM) 1.09 mMol/L (11/07/18 9:21 AM) Ca Norm WB [1.05-1.25 mMol/L] TOXICOLOGY 1 2 3 Most recent to oldest [Reference Range]: 88 ug/ml (11/07/18 3:05 AM) Valproic Acid Lvl [50-100 ug/ml] URINE AND STOOL 1 2 3 Most recent to oldest [Reference Range]: Cloudy *ABN* (11/07/18 2:42 AM) UA Turbidity [Clear] Yellow *NA* (11/07/18 2:42 AM) UA Color [Yellow] 6.5 (11/07/18 2:42 AM) UA pH [5.0-8.0] 1.010 (11/07/18 2:42 AM) UA Spec Grav [<=1.030] Negative (11/07/18 2:42 AM) UA Glucose [Negative] Trace *ABN* (11/07/18 2:42 AM) UA Blood [Negative] Negative *NA* (11/07/18 2:42 AM) UA Ketones [Negative] Negative (11/07/18 2:42 AM) UA Protein [Negative] 0.2 EU/dL (11/07/18 2:42 AM) UA Urobilinogen [0.1-1.0 EU/dL] Negative *NA* (11/07/18 2:42 AM) UA Bili [Negative] Large *ABN* (11/07/18 2:42 AM) UA Leuk Est [Negative] Positive *ABN* (11/07/18 2:42 AM) UA Nitrite [Negative] 21-50 /HPF *ABN* (11/07/18 2:42 AM) UA WBC [None Seen /HPF] None Seen (11/07/18 2:42 AM) UA RBC [0-2] Many /HPF (11/07/18 2:42 AM) UA Bacteria [None Seen /HPF] Few /LPF (11/07/18 2:42 AM) UA Sq Epi [Few /LPF] IMMUNOLOGY 1 2 3 Most recent to oldest [Reference Range]: Non-Reactive (11/07/18 12:50 PM) RPR [Non-Reactive] HEMATOLOGY 1 2 3 Most recent to oldest [Reference Range]: 5.8 K/CMM (11/09/18 3:40 AM) 4.6 K/CMM (11/08/18 12:41 AM) 7.2 K/CMM (11/07/18 12:36 AM) WBC [3.7-10.4 K/CMM] 4.42 M/CMM (11/09/18 3:40 AM) 3.84 M/CMM *LOW* (11/08/18 12:41 AM) 4.11 M/CMM *LOW* (11/07/18 12:36 AM) RBC [4.20-5.40 M/CMM] 13.3 g/dL (11/09/18 3:40 AM) 11.6 g/dL *LOW* (11/08/18 12:41 AM) 12.3 g/dL (11/07/18 12:36 AM) Hgb [12.0-16.0 g/dL] 39.6 % (11/09/18 3:40 AM) 34.3 % *LOW* (11/08/18 12:41 AM) 36.6 % (11/07/18 12:36 AM) Hct [36.0-48.0 %] 89.5 fL (11/09/18 3:40 AM) 89.3 fL (11/08/18 12:41 AM) 89.0 fL (11/07/18 12:36 AM) MCV [80.0-98.0 fL] 30.2 pg (11/09/18 3:40 AM) 30.2 pg (11/08/18 12:41 AM) 29.9 pg (11/07/18 12:36 AM) MCH [27.0-31.0 pg] 33.7 g/dL (11/09/18 3:40 AM) 33.8 g/dL (11/08/18 12:41 AM) 33.6 g/dL (11/07/18 12:36 AM) MCHC [32.0-36.0 g/dL] 14.3 % (11/09/18 3:40 AM) 14.8 % *HI* (11/08/18 12:41 AM) 14.4 % (11/07/18 12:36 AM) RDW [11.5-14.5 %] 8.9 fL (11/09/18 3:40 AM) 8.9 fL (11/08/18 12:41 AM) 8.7 fL (11/07/18 12:36 AM) MPV [7.4-10.4 fL] 207 K/CMM (11/09/18 3:40 AM) 210 K/CMM (11/08/18 12:41 AM) 216 K/CMM (11/07/18 12:36 AM) Platelet [133-450 K/CMM] 45.1 % (11/09/18 3:40 AM) 46.1 % (11/08/18 12:41 AM) 54.3 % (11/07/18 12:36 AM) Segs [45.0-75.0 %] 39.2 % (11/09/18 3:40 AM) 38.0 % (11/08/18 12:41 AM) 31.6 % (11/07/18 12:36 AM) Lymphocytes [20.0-40.0 %] 11.5 % (11/09/18 3:40 AM) 10.5 % (11/08/18 12:41 AM) 10.0 % (11/07/18 12:36 AM) Monocytes [2.0-12.0 %] 3.5 % (11/09/18 3:40 AM) 4.3 % *HI* (11/08/18 12:41 AM) 3.4 % (11/07/18 12:36 AM) Eosinophils [0.0-4.0 %] 0.7 % (11/09/18 3:40 AM) 1.1 % *HI* (11/08/18 12:41 AM) 0.7 % (11/07/18 12:36 AM) Basophils [0.0-1.0 %] 2.6 K/CMM (11/09/18 3:40 AM) 2.1 K/CMM (11/08/18 12:41 AM) 3.9 K/CMM (11/07/18 12:36 AM) Neutrophils # [1.5-8.1 K/CMM] 2.3 K/CMM (11/09/18 3:40 AM) 1.8 K/CMM (11/08/18 12:41 AM) 2.3 K/CMM (11/07/18 12:36 AM) Lymphocytes # [1.0-5.5 K/CMM] 0.7 K/CMM (11/09/18 3:40 AM) 0.5 K/CMM (11/08/18 12:41 AM) 0.7 K/CMM (11/07/18 12:36 AM) Monocytes # [0.0-0.8 K/CMM] 0.2 K/CMM (11/09/18 3:40 AM) 0.2 K/CMM (11/08/18 12:41 AM) 0.2 K/CMM (11/07/18 12:36 AM) Eosinophils # [0.0-0.5 K/CMM] 0.1 K/CMM (11/08/18 12:41 AM) 0.1 K/CMM (11/07/18 12:36 AM) Basophils # [0.0-0.2 K/CMM] 13.1 seconds (11/07/18 12:36 AM) PT [12.0-14.7 seconds] 1.01 (11/07/18 12:36 AM) INR [0.85-1.17] 28.6 seconds (11/07/18 12:36 AM) PTT [22.9-35.8 seconds] Microbiology Reports TEST: Culture: Urine STATUS: Auth (Verified) BODY SITE: SOURCE: Urine, Clean Catch COLLECTED DATE/TIME: 11/07/18 3:01 AM FINAL REPORT >100,000 CFU/mL Klebsiella pneumoniae ssp pneumoniae ORGANISM:Klebsiella pneumoniae ssp pneumoniae Immunizations No data available for this section Procedures Procedure Date Related Diagnosis Body Site Status Appendix operation Completed Cholecystectomy Completed Hernia repair Completed Hysterectomy Completed Parathyroidectomy Completed Social History Social History Type Response Substance Abuse Use: None. Smoking Status Never smoker; Exposure to Tobacco Smoke Unable to obtain; Cigarette Smoking Last 365 Days Unable to obtain; Reg Smoking Cessation Counseling No entered on: 11/07/18 Assessment and Plan Extracted from: Title: Discharge Summary Author: Kamari Cochran MD Date: 11/09/18 General Neurology Discharge Summary Date of Admission: 11/07/18 Date of Discharge: 11/09/18 Admit Diagnosis: Gait Ataxia Discharge Diagnosis: Gait Ataxia Consults Obtained: None Brief HPI: Ms. Tyler is a 68 yo F w/PMH of HTN, HLD, ID 6 mo ago, recurrent UTIs, and L parietal meningioma which was discovered in 2006 when she presented w/complex partial seizures (syncopal episodes w/post-ictal drowsiness, confusion, and ataxia). Initially she was treated w/depakote which was ineffective, then placed on keppra 500 bid which was gradually inc to 2k bid over the course of 2 yrs, after which she had adequate seizure control. Her meningioma was serially monitored w/imaging until 2015 when she started complaining of daily occipital MONZON, increased lethargy, and word-finding difficulty, and underwent gamma-knife in 2016. She did very well after gamma-knife, sxs resolved, then she self-d/c'd keppra 1 yr ago. About 6 months ago, she began having staring spells as witnessed by her daughter, 'brief', sometimes happening up to 3-4x/day. Afterwards, she would sleep, then wake up confused, repeating same questions, and difficulty ambulating. Pt denies feeling LOC or having lapses in time. Reportedly, the ataxia was persistent, but it seems it wasn't a huge concern at the time. About 2 weeks ago, pt noted sudden onset of dysarthria and worsening of ataxia (falling to the R, having multiple falls, pt now has to hold on to something to ambulate safely), which has been persistent since onset, not fluctuating. Denies double vision, n/v, vertigo. Pt does not recall what she was doing during onset of sxs. Unclear whether these sxs are related to the staring spells or not as they have been constant since onset, but daughter reports pt had ataxia in relation to seizure before. Pt went to see her neurologist who started pt on depakote ER 500 qhs, uptitrated to 1000 qhs after 3 days (pt was also complaining of MONZON and what she describes as 'manic attacks'- insomnia, up cleaning all night; so depakote was started to address all 3 of these). She also ordered an outpatient MRI and cEEG to be done at home, planned to be started Thursday. However, pt keeps falling and feels unsafe at home, so she presented for further evaluation. Pt reports that since she started the depakote her insomnia has resolved, she is somewhat groggy in the morning, but doesn't mind this. She notes improved concentration until around 2 PM, when she feels the vpa 'wears off' and she 'just can't concentrate'. Daughter doesn't live with pt, but from what she has heard from the boyfriend, she thinks pt is still having multiple staring spells a day. Pt stopped driving one wk ago as instructed by her neurologist. In the ED, pt found to be hypokalemic, repleted, and UTI, given rocephin. Denies dysuria, suprapubic pain. Hospital Course: Patient was admitted to inpatient neurology service for 2 weeks of gait-ataxia and dysarthria as described above. On exam, patient had no dysarthria, but did show some gait ataxia with preference towards left side. Patient was placed on continuous EEG monitoring for >24 hours which showed no epileptiform activity. Head imaging was unrevealing for new infarct or lesions. Patient was evaluated by physical therapy who recommended patient receive a rolling walker for safety and follow-up with outpatient PT. On day of discharge, patient had no noticeable dysarthria. She endorsed some continued gait ataxia, but was able to walk without assistance. She denied headaches, changes in vision, chest pain, trouble breathing, abdominal pain, dysuria. She was discharged home with 5 days of Ciprofloxacin to complete her UTI treatment. She was discharged with recommendations to follow-up with neurology and PCP within 2 weeks. Diagnostic Testing: CT Brain w/o contrast (11/07): 1. No acute intracranial abnormality. 2. A 2.0 cm left parieto-occipital parafalcine calcified meningioma. CT cervical spine w/o contrast (11/07): 1. No acute abnormality of the cervical spine is identified. 2. Advanced degenerative disc disease at C6-C7 associated with posterior disc osteophyte complex formation and narrowing of the AP dimension of the spinal canal. 3. Multilevel cervical spondylosis as described. 4. Chondrocalcinosis. 5. Bilateral carotid bulb calcifications. MRI Brain w/wo contrast (11/07): No acute infarct Remote small lacunar infarct in the right herrera radiata Global cerebral volume loss, chronic microvascular ischemic changes, and a few bilateral basal ganglia chronic microhemorrhages Calcified meningioma overlying the left parieto-occipital convexity exerting localized mass effect upon the immediately subjacent brain parenchyma MRI cervical spine w/wo contrast (11/07): Spinal canal stenosis at C6-C7 ([id number]) and C5-C6 (moderate), due to disc bulges and posterior spondylotic bars. No cord signal abnormality or obvious cord volume loss at either level Varying degrees of neural foraminal stenoses, moderate on the right at C3-C4, C4-C5, and C5-C6, with conceivable intrusion upon the corresponding exiting nerve roots at these levels. Milder neural foraminal narrowing at additional levels. EEG (11/07): This EEG is within normal limits. No epileptiform discharges or lateralizing signs were noted. Discharge Physical Examination: Vital Signs (last 24 hrs) Last Charted Temp Oral97.9 DegF (NOV 09:15) Heart Rate [id number] bpm (NOV 09 15:15) Resp Rate 18 BRMIN (NOV 09:15) BAR300 mmHg (NOV 09:) DBP75 mmHg (NOV 09:15) LeH034 % (NOV 09:15) Kaepns23.909 kg (NOV 09 10:32) Physical exam: Gen: laying comfortably in bed, well developed, well nourished HEENT: NCAT, anicteric sclera, post pharynx clear, mucus membrances moist CV: normotensive, intact peripheral pulses Pulm: breathing comfortably, symmetric chest expansion GI: soft, nt, nd Skin: clear, no edema, no rashes Neurology: Mental Status: A&Ox3, good concentration; fluent, intact naming, comprehension, and repetition; mild-moderate dysarthria; normal fund of knowledge and memory (reportedly was slower cognitively on ED resident assessment, may be fluctuating) CN: PERRLA, 3 mm BL, EOMI, physiologic nystagmus on horizontal gaze, full VF; no facial asymmetry, facial sensation intact; auditory acuity intact; tongue midline, palate elevates symmetrically; SCM and traps are 5/5 BL Motor: strength 4+/5 throughout (seems to be baseline), no drift, normal tone Sensory: intact to light touch throughout. Decreased to pinprick in LLE, which pt says is chronic 2/2 varicose vein surgery; otherwise intact to pinprick. Vibration and proprioception intact. Coordination: intact FTN BL. intact HTS on R, some difficulty on L. Reflexes: brisk +2 throughout, no clonus Gait: ataxic, veers to the L Discharge Medications: Discharge Medications Occupational Therapy :See SELVIN Eaton ONCALL, Evaluate and Treat 3 times per week for 4 weeks, 1 unit, 0 Refill(s) Ordered by: Clair Fontana MD - 11/09/2018 12:19 Physical Therapy :See SELVIN Eaton ONCALL, Evaluate and Treat 3 times per week for 4 weeks, 1 unit, 0 Refill(s) Ordered by: Clair Fontana MD - 11/09/2018 12:18 Cipro 500 mg oral tablet :500 mg, 1 tab, PO, Q12H, for 5 day, 10 tab, 0 Refill(s) Ordered by: Clair Fontana MD - 11/09/2018 11:47 Follow up: Follow-Up With Provider : Non-MH physician, Non-MH physician #2 Non MH Provider #1 : Neurology Follow-Up Call : Call for appointment Follow-Up Within : 2 Weeks Reason : Follow Up On Treatment Non MH Provider #2 : PCP Follow-Up Call : Call for appointment Follow-Up Within : 2 Weeks Reason : Primary Care Physician follow up post hospitalization Discharge Instructions: Notify Physician if any of the Following Occur : Bleeding, Fever, Nausea, Pain, Shortness of breath, Signs of infection, Swelling Special Home Care Instructions : Neurology discharge instructions: You were admitted for slurred speech and gait abnormality. You will need to follow up with a neurologist for further care. Medications: - Take your medications as instructed in your discharge summary. Take Ciprofloxacin 500 mg 2x a day for 5 days for urinary tract infection. Follow-up appointments: - Neurology: Call [phone] to schedule an appointment in neurology clinic within 2-4 weeks for further management. - PCP: Call your PCP to schedule an appointment within 2-4 weeks for post-hospitalization follow-up and management of your overall health. If you don't have a PCP, call [facility] at [phone] to schedule an appointment with a Primary Care Physician within 2-4 weeks for management of your overall health. Please call our nurse navigator Darlyn ([phone]) with any questions regarding medications, follow-up appointments, or dischargeinstructions. Please take your discharge paperwork with you to your follow-up appointments. Returning back to work/school will be addressed at your follow-up appointment. Neurology clinic address: [address], [address] [place] [address] Are There Any Activity Restrictions : Yes Activity : Activity as tolerated, Ambulate with walker Clair Fontana MD Psychiatry PGY-1 [facility] [employer] Extracted from: Title: Neurology Author: Nathaly Drummond MD Date: 11/07/18 General Neurology History & Physical Chief Complaint: ataxia, dysarthria HPI: Ms. Tyler is a 68 yo F w/PMH of HTN, HLD, ID 6 mo ago, recurrent UTIs, and L parietal meningioma which was discovered in 2006 when she presented w/complex partial seizures (syncopal episodes w/post-ictal drowsiness, confusion, and ataxia). Initially she was treated w/depakote which was ineffective, then placed on keppra 500 bid which was gradually inc to 2k bid over the course of 2 yrs, after which she had adequate seizure control. Her meningioma was serially monitored w/imaging until 2015 when she started complaining of daily occipital MONZON, increased lethargy, and word-finding difficulty, and underwent gamma-knife in 2016. She did very well after gamma-knife, sxs resolved, then she self-d/c'd keppra 1 yr ago. About 6 months ago, she began having staring spells as witnessed by her daughter, 'brief', sometimes happening up to 3-4x/day. Afterwards, she would sleep, then wake up confused, repeating same questions, and difficulty ambulating. Pt denies feeling LOC or having lapses in time. Reportedly, the ataxia was persistent, but it seems it wasn't a huge concern at the time. About 2 weeks ago, pt noted sudden onset of dysarthria and worsening of ataxia (falling to the R, having multiple falls, pt now has to hold on to something to ambulate safely), which has been persistent since onset, not fluctuating. Denies double vision, n/v, vertigo. Pt does not recall what she was doing during onset of sxs. Unclear whether these sxs are related to the staring spells or not as they have been constant since onset, but daughter reports pt had ataxia in relation to seizure before. Pt went to see her neurologist who started pt on depakote ER 500 qhs, uptitrated to 1000 qhs after 3 days (pt was also complaining of MONZON and what she describes as 'manic attacks'- insomnia, up cleaning all night; so depakote was started to address all 3 of these). She also ordered an outpatient MRI and cEEG to be done at home, planned to be started Thursday. However, pt keeps falling and feels unsafe at home, so she presented for further evaluation. Pt reports that since she started the depakote her insomnia has resolved, she is somewhat groggy in the morning, but doesn't mind this. She notes improved concentration until around 2 PM, when she feels the vpa 'wears off' and she 'just can't concentrate'. Daughter doesn't live with pt, but from what she has heard from the boyfriend, she thinks pt is still having multiple staring spells a day. Pt stopped driving one wk ago as instructed by her neurologist. In the ED, pt found to be hypokalemic, repleted, and UTI, given rocephin. Denies dysuria, suprapubic pain. PMH: as above PSH: gallbladder sx, breast lumpectomy, hernia repair, lithotripsy x11 Family hx: stroke Social hx: Patient lives w/her fiance, independent at baseline, retired in . Denies tobacco, alcohol, illicit drug use. Meds: amLODIPine 5 mg PO Daily aspirin 81 mg PO Daily atorvastatin 20 mg PO Bedtime divalproex sodium (Depakote ER 500 mg oral tablet, extended release) 1,000 mg PO Bedtime levothyroxine 100 microgram PO Daily Allergies: nkda Review of Systems: GEN: no fever, chills, weight loss, fatigue EYES: no blurred vision, double vision CARDIO: no chest pain, palpitations RESP: no shortness of breath, cough, congestion GI: no nausea, vomiting, diarrhea, abd pain : no frequency, dysuria, hematuria NEURO: see HPI SKIN: no rash, lesion MSK: no pain, weakness, limited ROM ENDO: no heat or cold intolerance HEME: no lymph node enlargement, easy bruising PSYCH: no anxiety, depression Objective: VitalsTmp(F)[id number] 11/07 10:[id number]--- 11/07 09:22----[id number]--- 11/07 08:[id number]--- 11/07 06:49----[id number]--- 11/07 04:00----[id number]--- 24 Hr Tmax: 98.4F (36.89c) at 11/07 10:31Vital Signs are the last 5 in the past 48 hours. Physical exam: Gen: laying comfortably in bed, well developed, well nourished HEENT: NCAT, anicteric sclera, post pharynx clear, mucus membrances moist CV: normotensive, intact peripheral pulses Pulm: breathing comfortably, symmetric chest expansion GI: soft, nt, nd Skin: clear, no edema, no rashes Neurology: Mental Status: A&Ox3, good concentration; fluent, intact naming, comprehension, and repetition; mild-moderate dysarthria; normal fund of knowledge and memory (reportedly was slower cognitively on ED resident assessment, may be fluctuating) CN: PERRLA, 3 mm BL, EOMI, physiologic nystagmus on horizontal gaze, full VF; no facial asymmetry, facial sensation intact; auditory acuity intact; tongue midline, palate elevates symmetrically; SCM and traps are 5/5 BL Motor: full strength throughout (BLLEs 4+/5, seems to be baseline), no drift, normal tone Sensory: intact to light touch throughout. Decreased to pinprick in LLE, which pt says is chronic 2/2 varicose vein surgery; otherwise intact to pinprick. Vibration and proprioception intact. Coordination: intact FTN BL. intact HTS on R, some difficulty on L. Reflexes: brisk +2 throughout, no clonus Gait: ataxic, veers to the R Romberg: + Labs: Labs (Last four charted values) WBC 7.2(NOV 07) Hgb 12.3(NOV 07) Hct 36.6(NOV 07) Plt 216(NOV 07) Na H 146(NOV 07)H 147(NOV 07) K L 3.4(NOV 07)C 2.8(NOV 07) CO2 29(NOV 07)28(NOV 07) Cl H 110(NOV 07)H 110(NOV 07) Cr 0.89(NOV 07)1.00(NOV 07) BUN 9(NOV 07)11(NOV 07) Glucose Random 99(NOV 07)96(NOV 07) Mg H 2.7(NOV 07) Ca 8.7(NOV 07)8.8(NOV 07) PT 13.1(NOV 07) INR 1.01(NOV 07) PTT 28.6(NOV 07) Imaging: MRI w/ & w/out appears stable, read pending A&P: 68 yo F w/PMH of HTN, HLD, ID 6 mo ago, recurrent UTIs, L parietal meningioma, and secondary CPS, who presents for eval of dysarthria and ataxia x2 weeks. MRI neg for acute stroke. Pt also reports frequent staring spells, and reports ataxia in conjunction w/seizures in the past. Will cont home depakote, and eval pt on continuous EEG, see if sxs improve w/seizure control. If not, may benefit from MRI w/thin cuts through the brainstem. DRILLING RIG OPERATOR Focal seizures - cEEG to capture frequency, assess efficacy of depakote. Also, see below. - Cont home depakote for now, therapeutic level - Treat UTI - Replete electrolytes Dysarthria Gait ataxia - Possibly 2/2 being post-ictal vs possible brainstem stroke not captured on MRI - No loss of vib/proprioception to suggest dorsal column pathology but will send B12, folate, RPR - cEEG for now. If sxs do not improve w/seizure control, can consider MRI w/thin cuts through brainstem - PT/OT CV Essential hypertension - Cont home amlodipine HLD - Cont home atorva 20, ASA 81 qd GI - Regular diet RENAL CKD Stage 2 (GFR 60-89) - Avoid nephrotoxic agents Hypokalemia Hypocalcemia - Replete electrolytes ID UTI - Rocephin x3d - Urine cx pending DVT ppx: hsq Dispo: may need rehab Full code Nathaly Drummond MD Neurology PGY-2 Case discussed with the color control operator Neurology attending. General neurology service #: [id number] POA: DRILLING RIG OPERATOR - Ataxia, Dysarthria, Seizures CV - HTN, HLD ID - UTI Renal - CKD, Hypokalemia, Hypocalcemia Post-rounds Addendum: Subjective: No events overnight. Patient denies any seizure activity that she's aware of overnight. Patient confirms history above that for past 2 weeks, she has had dysarthria and ataxia. She says she doesn't really notice the dysarthria but reports others tell her she is slurring. Instead, she reports that the balance problems are most concerning to her. She says she will lean to the left when walking and feels unsteady on her feet. Denies feelings of dizziness. She also says that her daughter has told her that she has staring spells but patient has not noticed. Patient says that she had been symptom and seizure-free since gamma-knife surgery in 2017. Prior to that, she has seizures which considtered of her losing gaps of time and waking up confused. Denies current headaches, changes in vision, chest pain, SOB, trouble swallowing, abdominal pain, or n/v. Medications (8) Active Scheduled: (8) amLODIPine 5 mg TAB 5 mg 1 tab, PO, Daily aspirin 81 mg CHEW TAB 81 mg 1 tab, PO, Daily atorvastatin 20 mg TAB 20 mg 1 tab, PO, Bedtime cefTRIAXone 1 gm INJ VL 1 gm, IVPB, [id number] divalproex sodium 500 mg ER tab 1,000 mg 2 tab, PO, Bedtime heparin 5000 unit/1 ml INJ VL 5,000 unit 1 mL, SUB-Q, Q8H levothyroxine 100 microgram TAB 100 microgram 1 tab, PO, Daily LORazepam 1 mg TAB 1 mg 1 tab, PO, ONCE Continuous: (0) PRN: (0) Objective: Vital Signs (last 24 hrs) Last Charted Temp Oral98.0 DegF (NOV 08) Heart Rate Oxszfcbujd81 bpm (NOV 08) Resp Rate 18 BRMIN (NOV 08) UUB915 mmHg (NOV 08) DBP68 mmHg (NOV 08) IcO679 % (NOV 08) Physical exam: Gen: laying comfortably in bed, well developed, well nourished HEENT: NCAT, anicteric sclera, post pharynx clear, mucus membrances moist CV: normotensive, intact peripheral pulses Pulm: breathing comfortably, symmetric chest expansion GI: soft, nt, nd Skin: clear, no edema, no rashes Neurology: Mental Status: A&Ox3, good concentration; fluent, intact naming, comprehension, and repetition; mild-moderate dysarthria; normal fund of knowledge and memory (reportedly was slower cognitively on ED resident assessment, may be fluctuating) CN: PERRLA, 3 mm BL, EOMI, physiologic nystagmus on horizontal gaze, full VF; no facial asymmetry, facial sensation intact; auditory acuity intact; tongue midline, palate elevates symmetrically; SCM and traps are 5/5 BL Motor: strength 4+/5 throughout (seems to be baseline), no drift, normal tone Sensory: intact to light touch throughout. Decreased to pinprick in LLE, which pt says is chronic 2/2 varicose vein surgery; otherwise intact to pinprick. Vibration and proprioception intact. Coordination: intact FTN BL. intact HTS on R, some difficulty on L. Reflexes: brisk +2 throughout, no clonus Gait: ataxic, veers to the L Labs (Last four charted values) WBC 4.6(NOV 08)7.2(NOV 07) Hgb L 11.6(NOV 08)12.3(NOV 07) Hct L 34.3(NOV 08)36.6(NOV 07) Plt 210(NOV 08)216(NOV 07) Na H 148(NOV 08)H 146(NOV 07)H 147(NOV 07) K L 3.3(NOV 08)L 3.4(NOV 07)C 2.8(NOV 07) CO2 26(NOV 08)29(NOV 07)28(NOV 07) Cl H 113(NOV 08)H 110(NOV 07)H 110(NOV 07) Cr 0.64(NOV 08)0.89(NOV 07)1.00(NOV 07) BUN 11(NOV 08)9(NOV 07)11(NOV 07) Glucose Random 79(OCT 18)99(OCT 17)96(OCT 17) Mg 2.3(OCT 18)H 2.7(NOV 07) Phos 4.4(NOV 08) Ca L 8.4(NOV 08)8.7(NOV 07)8.8(NOV 07) PT 13.1(NOV 07) INR 1.01(NOV 07) PTT 28.6(NOV 07) Diagnostic Testing: CT Brain w/o contrast (11/07): 1. No acute intracranial abnormality. 2. A 2.0 cm left parieto-occipital parafalcine calcified meningioma. CT cervical spine w/o contrast (11/07): 1. No acute abnormality of the cervical spine is identified. 2. Advanced degenerative disc disease at C6-C7 associated with posterior disc osteophyte complex formation and narrowing of the AP dimension of the spinal canal. 3. Multilevel cervical spondylosis as described. 4. Chondrocalcinosis. 5. Bilateral carotid bulb calcifications. MRI Brain w/wo contrast (11/07): No acute infarct Remote small lacunar infarct in the right herrera radiata Global cerebral volume loss, chronic microvascular ischemic changes, and a few bilateral basal ganglia chronic microhemorrhages Calcified meningioma overlying the left parieto-occipital convexity exerting localized mass effect upon the immediately subjacent brain parenchyma MRI cervical spine w/wo contrast (11/07): Spinal canal stenosis at C6-C7 ([id number]) and C5-C6 (moderate), due to disc bulges and posterior spondylotic bars. No cord signal abnormality or obvious cord volume loss at either level Varying degrees of neural foraminal stenoses, moderate on the right at C3-C4, C4-C5, and C5-C6, with conceivable intrusion upon the corresponding exiting nerve roots at these levels. Milder neural foraminal narrowing at additional levels. EEG (11/07): This EEG is within normal limits. No epileptiform discharges or lateralizing signs were noted. Assessment: Patient is a 68 yo F w/ PMH of HTN, HLD, ID 6 mo ago, recurrent UTIs, L parietal meningioma, and secondary complex partial seizures, who presents for eval of dysarthria and ataxia x2 weeks. Patient had previously been symptom-free since gamma-knife surgery in 2017. No dysarthria on exam but does have ataxic gait. MRI neg for acute stroke. So far, patient has had no epileptiform activity on continuous EEG. Will continue patient on cEEG for 24 hours total and discontinue EEG if continues to be unrevealing. Will continue on current Depakote dosage. Patient found to have UTI on admission with culture growing GNR. Will continue on Rocephin for now and follow-up on abx susceptibilities. Updated Plan: -continue cEEG for 24 hrs -Continue Rocephin for UTI -UCx growing GNR, susceptibilities pending -Continue Depakote 1000 mg ER qhs -Follow-up PT recs Clair Fontana MD Psychiatry PGY-1 [facility] Neurology Attending: I reviewed the resident's note, personally reviewed all the patient s labs and imaging studies and performed a neurological exam. I discussed the assessment and plan of care and agree with the plan as outlined in the resident's note. Pt with meningioma and CPS recently restarted on VPA. No dysarthria noted on exam but unsteady gait, MRI neg for stroke, C spine with moderate spinal stenosis C5-C7 without significant compression. NSx consulted, no intervention. cEEG pending, continue VPA. Treating UTI. Pauly DeG uzman MD
--- OUTSIDE RECORDS SUMMARY | 2019-03-30 07:59 | XMS REPORT | Continuity of Care Document ---
Author Author [employer] Organization [employer] Address Unknown Phone Unavailable Care Team Providers Care Full Stack Software Developer Name Role Phone [facility] [employer] Unavailable Unavailable Problems Problem Status Onset Date Classification Date Reported Comments Source HIGH BLOOD PRESSURE/SEIZURE Active 11/06/2018 [facility] COMPLEX PARTIAL SEIZURE Active 11/06/2018 [facility] Acute UTI Active Problem 11/11/2018 [facility] Gait instability Active Problem 11/11/2018 [facility] LOCAL-REL SYMPTC EPI W CMPLX PRT SEIZ,NO Active [facility] Medications Medication Details Route Status Patient Instructions Ordering Provider Order Date Source Physical Therapy See Instructions, MISC, ONCALL, Evaluate and Treat 3 times per week for 4 weeks, # 1 unit, 0 Refill(s) Active 11/09/2018 [facility] Occupational Therapy See Instructions, MISC, ONCALL, Evaluate and Treat 3 times per week for 4 weeks, # 1 unit, 0 Refill(s) Active 11/09/2018 [facility] Ciprofloxacin 500 MG Oral Tablet [Cipro] 500 mg=1 tab, PO, Q12H, X 5 day, # 10 tab, 0 Refill(s) Active 11/09/2018 [facility] Rocephin 1 gm, Route: IVPB, Drug form: PDR/INJ, [id number], Dosing Weight 85, kg, Start date: 11/09/18 8:00:00 CDT, Duration: 2 day, Stop date: 11/10/18 8:00:00 CDT, ABX Indication: Urinary Tract InfectionNotes: (Same As: Rocephin). Use with 100 mL NS and infuse over 30 min MEDICATION WASTE Product Size: 1000 mg Product Wasted: ___ mg Inactive 11/09/2018 [facility] 24 HR Divalproex Sodium 500 MG Extended Release Tablet [Depakote] 1,000 mg, 2 tab, Route: PO, Drug form: ERTAB, Bedtime, Dosing Weight 85, kg, Start date: 11/08/18 21:00:00 CDT, Duration: 30 day, Stop date: 12/07/18 21:00:00 CDTNotes: (Same as: Depakote ER) Once daily dosing; indicated for migraines. Divalproex sodium extended-release tab. Do not chew or crush. "Do Not Crush" No Longer Active 11/09/2018 [facility] Thyroxine 100 microgram, 1 tab, Route: PO, Drug form: TAB, Daily, Dosing Weight 85, kg, Start date: 11/08/18 9:00:00 CDT, Duration: 30 day, Stop date: 12/07/18 9:00:00 CDTNotes: Take 1 hour before or 2 hours after meal; Enteral feeds may interefere with the absorption of this medication. (Same as:Levothroid, Synthroid) No Longer Active 11/08/2018 [facility] Amlodipine 5 mg, 1 tab, Route: PO, Drug form: TAB, Daily, Dosing Weight 85, kg, Start date: 11/08/18 9:00:00 CDT, Duration: 30 day, Stop date: 12/07/18 9:00:00 CDTNotes: (Same as: Norvasc) No Longer Active 11/08/2018 [facility] 24 HR Divalproex Sodium 500 MG Extended Release Tablet [Depakote] 1,000 mg, 2 tab, Route: PO, Drug form: ERTAB, Bedtime, Dosing Weight 85, kg, Start date: 11/07/18 21:00:00 CDT, Duration: 30 day, Stop date: 12/06/18 21:00:00 CDTNotes: (Same as: Depakote ER) Once daily dosing; indicated for migraines. Divalproex sodium extended-release tab. Do not chew or crush. "Do Not Crush" Inactive 11/08/2018 [facility] atorvastatin 20 mg, 1 tab, Route: PO, Drug form: TAB, Bedtime, Dosing Weight 85, kg, Start date: 11/07/18 21:00:00 CDT, Duration: 30 day, Stop date: 12/06/18 21:00:00 CDTNotes: (Same As: Lipitor) No Longer Active 11/08/2018 [facility] heparin 5,000 unit, 1 mL, Route: SUB-Q, Drug form: INJ, Q8H, Dosing Weight 85, kg, Start date: 11/07/18 16:00:00 CDT, Duration: 30 day, Stop date: 12/07/18 8:00:00 CDTNotes: porcine heparin No Longer Active 11/07/2018 [facility] Vitamin D3 2000 intl units oral tablet 2,000 IntlUnit=1 tab, PO, Daily, 0 Refill(s) Active 11/07/2018 [facility] Dicyclomine Hydrochloride 20 MG Oral Tablet [Bentyl] 20 mg=1 tab, PO, BID, PRN, 0 Refill(s) Active 11/07/2018 [facility] Ibuprofen 800 mg, prn, 0 Refill(s) No Longer Active 11/07/2018 [facility] Linzess 325 mcg, PO, Daily, 325mcg, 0 Refill(s) Active 11/07/2018 [facility] Aspirin 81 mg, 1 tab, Route: PO, Drug form: CHEWTAB, Daily, Dosing Weight 85, kg, Start date: 11/07/18 11:07:00 CDT, Duration: 30 day, Stop date: 12/07/18 9:00:00 CDTNotes: Take with food. No Longer Active 11/07/2018 [facility] Calcium Gluconate 1,000 mg, 10 mL, Route: IVPB, Drug form: INJ, ONCE, Dosing Weight 85, kg, Start date: 11/07/18 11:05:00 CDT, Stop date: 11/07/18 11:05:00 CDTNotes: WASTE: F/P - Sink; E - Municipal Trash Bin Inactive 11/07/2018 [facility] Potassium Chloride 40 mEq, 30 mL, Route: PO, Drug form: LIQ, ONCE, Dosing Weight 85, kg, Electrolyte replacement, Start date: 11/07/18 11:04:00 CDT, Stop date: 11/07/18 11:04:00 CDTNotes: (Same as: Potassium Chloride) Inactive 11/07/2018 [facility] 24 HR Divalproex Sodium 500 MG Extended Release Tablet [Depakote] 1,000 mg=2 tab, PO, Bedtime, # 60 tab, 1 Refill(s) Active 11/07/2018 [facility] atorvastatin 20 mg, PO, Bedtime, 0 Refill(s) Active 11/07/2018 [facility] levothyroxine 100 mcg (0.1 mg) oral tablet 100 microgram=1 tab, PO, Daily, # 30 tab, 0 Refill(s) Active 11/07/2018 [facility] Amlodipine 5 mg, PO, Daily, 0 Refill(s) Active 11/07/2018 [facility] Aspirin 81 mg, PO, Daily, 0 Refill(s) Active 11/07/2018 [facility] Magnesium Sulfate 2 gm, 50 mL, Route: IVPB, Drug form: INJ, ONCE, Dosing Weight 85, kg, Start date: 11/07/18 7:05:00 CDT, Stop date: 11/07/18 7:05:00 CDTNotes: WASTE: F/P - Sink; E - Municipal Trash Bin Inactive 11/07/2018 [facility] Rocephin 1 gm, Route: IVP, Drug form: PDR/INJ, ONCE, Dosing Weight 85, kg, Priority: STAT, Start date: 11/07/18 7:05:00 CDT, Stop date: 11/07/18 7:05:00 CDT, ABX Indication: Urinary Tract InfectionNotes: (Same As: Rocephin). Use with 100 mL NS and infuse over 30 min MEDICATION WASTE Product Size: 1000 mg Product Wasted: _0__ mg Inactive 11/07/2018 [facility] Ativan 1 mg, 1 tab, Route: PO, Drug form: TAB, ONCE, Dosing Weight 85, kg, Priority: STAT, Start date: 11/07/18 4:44:00 CDT, Stop date: 11/07/18 4:44:00 CDTNotes: (Same as: Ativan) Inactive 11/07/2018 [facility] Potassium Chloride 1.33 MEQ/ML Oral Solution 60 mEq, 45 mL, Route: PO, Drug form: LIQ, ONCE, Dosing Weight 85, kg, Priority: STAT, Start date: 11/07/18 1:17:00 CDT, Stop date: 03/17/19 1:17:00 CDTNotes: (Same as: Potassium Chloride) Inactive 11/07/2018 [facility] Allergies, Adverse Reactions, Alerts No Known Medication Allergies Immunizations No Data Provided for This Section Results Order Name Results Value Reference Range Date Interpretation Comments Source CHEM PANEL Phosphorus 4.2 2.5 - 4.5 11/09/2018 [facility] CHEM PANEL Magnesium Lvl 2.2 1.8 - 2.4 11/09/2018 [facility] CHEM PANEL Calcium Lvl 8.9 8.5 - 10.5 11/09/2018 [facility] CHEM PANEL BUN 11 7 - 22 11/09/2018 [facility] CHEM PANEL Creatinine Lvl 0.74 0.50 - 1.40 11/09/2018 [facility] CHEM PANEL Glucose Lvl 84 70 - 99 11/09/2018 [facility] CHEM PANEL Chloride Lvl 108 95 - 109 11/09/2018 [facility] CHEM PANEL CO2 30 24 - 32 11/09/2018 [facility] CHEM PANEL Calcium Lvl 8.9 8.5 - 10.5 11/09/2018 [facility] CHEM PANEL Sodium Lvl 146 135 - 145 11/09/2018 [facility] CHEM PANEL Potassium Lvl 3.3 3.5 - 5.1 11/09/2018 [facility] CHEM PANEL eGFR 84 11/09/2018 Result Comment: The eGFR is calculated using [...] should be multiplied by the estimated BMI. [facility] CHEM PANEL AGAP 11.3 10.0 - 20.0 11/09/2018 [facility] HEMATOLOGY RDW 14.3 11.5 - 14.5 11/09/2018 [facility] HEMATOLOGY Platelet 207 133 - 450 11/09/2018 [facility] HEMATOLOGY MPV 8.9 7.4 - 10.4 11/09/2018 [facility] HEMATOLOGY Hgb 13.3 12.0 - 16.0 11/09/2018 [facility] HEMATOLOGY Hct 39.6 36.0 - 48.0 11/09/2018 [facility] HEMATOLOGY MCV 89.5 80.0 - 98.0 11/09/2018 [facility] HEMATOLOGY MCH 30.2 27.0 - 31.0 11/09/2018 [facility] HEMATOLOGY MCHC 33.7 32.0 - 36.0 11/09/2018 [facility] HEMATOLOGY WBC 5.8 3.7 - 10.4 11/09/2018 [facility] HEMATOLOGY RBC 4.42 4.20 - 5.40 11/09/2018 [facility] HEMATOLOGY Neutrophils # 2.6 1.5 - 8.1 11/09/2018 [facility] HEMATOLOGY Lymphocytes # 2.3 1.0 - 5.5 11/09/2018 [facility] HEMATOLOGY Monocytes # 0.7 0.0 - 0.8 11/09/2018 [facility] HEMATOLOGY Eosinophils # 0.2 0.0 - 0.5 11/09/2018 [facility] HEMATOLOGY Monocytes 11.5 2.0 - 12.0 11/09/2018 [facility] HEMATOLOGY Eosinophils 3.5 0.0 - 4.0 11/09/2018 [facility] HEMATOLOGY Basophils 0.7 0.0 - 1.0 11/09/2018 [facility] HEMATOLOGY Segs 45.1 45.0 - 75.0 11/09/2018 [facility] HEMATOLOGY Lymphocytes 39.2 20.0 - 40.0 11/09/2018 [facility] CHEM PANEL Phosphorus 4.4 2.5 - 4.5 11/08/2018 [facility] CHEM PANEL Magnesium Lvl 2.3 1.8 - 2.4 11/08/2018 [facility] CHEM PANEL eGFR 93 11/08/2018 Result Comment: The eGFR is calculated using [...] should be multiplied by the estimated BMI. [facility] CHEM PANEL Calcium Lvl 8.4 8.5 - 10.5 11/08/2018 [facility] CHEM PANEL AGAP 12.3 10.0 - 20.0 11/08/2018 [facility] CHEM PANEL Chloride Lvl 113 95 - 109 11/08/2018 [facility] CHEM PANEL Potassium Lvl 3.3 3.5 - 5.1 11/08/2018 [facility] CHEM PANEL Sodium Lvl 148 135 - 145 11/08/2018 [facility] CHEM PANEL CO2 26 24 - 32 11/08/2018 [facility] CHEM PANEL Creatinine Lvl 0.64 0.50 - 1.40 11/08/2018 [facility] CHEM PANEL BUN 11 7 - 22 11/08/2018 [facility] CHEM PANEL Glucose Lvl 79 70 - 99 11/08/2018 [facility] HEMATOLOGY Monocytes 10.5 2.0 - 12.0 11/08/2018 [facility] HEMATOLOGY Eosinophils 4.3 0.0 - 4.0 11/08/2018 [facility] HEMATOLOGY Neutrophils # 2.1 1.5 - 8.1 11/08/2018 [facility] HEMATOLOGY Basophils 1.1 0.0 - 1.0 11/08/2018 [facility] HEMATOLOGY Segs 46.1 45.0 - 75.0 11/08/2018 [facility] HEMATOLOGY Lymphocytes 38.0 20.0 - 40.0 11/08/2018 [facility] HEMATOLOGY Monocytes # 0.5 0.0 - 0.8 11/08/2018 [facility] HEMATOLOGY Lymphocytes # 1.8 1.0 - 5.5 11/08/2018 [facility] HEMATOLOGY Basophils # 0.1 0.0 - 0.2 11/08/2018 [facility] HEMATOLOGY Eosinophils # 0.2 0.0 - 0.5 11/08/2018 [facility] HEMATOLOGY Platelet 210 133 - 450 11/08/2018 [facility] HEMATOLOGY MPV 8.9 7.4 - 10.4 11/08/2018 [facility] HEMATOLOGY Hct 34.3 36.0 - 48.0 11/08/2018 [facility] HEMATOLOGY MCH 30.2 27.0 - 31.0 11/08/2018 [facility] HEMATOLOGY MCV 89.3 80.0 - 98.0 11/08/2018 [facility] HEMATOLOGY RDW 14.8 11.5 - 14.5 11/08/2018 [facility] HEMATOLOGY MCHC 33.8 32.0 - 36.0 11/08/2018 [facility] HEMATOLOGY RBC 3.84 4.20 - 5.40 11/08/2018 [facility] HEMATOLOGY Hgb 11.6 12.0 - 16.0 11/08/2018 [facility] HEMATOLOGY WBC 4.6 3.7 - 10.4 11/08/2018 [facility] PARATHYROID PROFILE Ca Norm WB 1.15 1.05 - 1.25 11/08/2018 [facility] PARATHYROID PROFILE Ca Ion WB 1.13 1.05 - 1.25 11/08/2018 [facility] PARATHYROID PROFILE Ca Ion WB 1.07 1.05 - 1.25 11/07/2018 [facility] PARATHYROID PROFILE Ca Norm WB 1.11 1.05 - 1.25 11/07/2018 [facility] ANEMIA STUDY Folate Lvl 4.1 >=3.0 ng/mL 11/07/2018 [facility] ANEMIA STUDY Vitamin B12 Lvl 273 254 - 1320 11/07/2018 [facility] IMMUNOLOGY RPR Non-Reactive (11/07/18 12:50 PM) Non 11/07/2018 [facility] CHEM PANEL eGFR 67 11/07/2018 Result Comment: The eGFR is calculated using [...] should be multiplied by the estimated BMI. [facility] CHEM PANEL Glucose Lvl 99 70 - 99 11/07/2018 [facility] CHEM PANEL BUN 9 7 - 22 11/07/2018 [facility] CHEM PANEL Creatinine Lvl 0.89 0.50 - 1.40 11/07/2018 [facility] CHEM PANEL Potassium Lvl 3.4 3.5 - 5.1 11/07/2018 [facility] CHEM PANEL Sodium Lvl 146 135 - 145 11/07/2018 [facility] CHEM PANEL CO2 29 24 - 32 11/07/2018 [facility] CHEM PANEL Chloride Lvl 110 95 - 109 11/07/2018 [facility] CHEM PANEL Bili Total 0.4 0.2 - 1.3 11/07/2018 [facility] CHEM PANEL Alk Phos 90 39 - 136 11/07/2018 [facility] CHEM PANEL AST 13 0 - 37 11/07/2018 [facility] CHEM PANEL Albumin Lvl 2.8 3.5 - 5.0 11/07/2018 [facility] CHEM PANEL ALT 14 0 - 65 11/07/2018 [facility] CHEM PANEL Total Protein 6.7 6.4 - 8.4 11/07/2018 [facility] CHEM PANEL B/C Ratio 10 6 - 25 11/07/2018 [facility] CHEM PANEL AGAP 10.4 10.0 - 20.0 11/07/2018 [facility] CHEM PANEL A/G Ratio 0.7 0.7 - 1.6 11/07/2018 [facility] CHEM PANEL Globulin 3.9 2.7 - 4.2 11/07/2018 [facility] CHEM PANEL Magnesium Lvl 2.7 1.8 - 2.4 11/07/2018 [facility] PARATHYROID PROFILE Ca Ion WB 1.03 1.05 - 1.25 11/07/2018 [facility] PARATHYROID PROFILE Ca Norm WB 1.09 1.05 - 1.25 11/07/2018 [facility] TOXICOLOGY Valproic Acid Lvl 88 50 - 100 11/07/2018 [facility] TRIMETHOPRIM+SULFAMETHOXAZOLE:SUSC:PT:ISOLATE:ORDQN:SOPHIA Culture: Urine >100,000 CFU/mL Klebsiella pneumoniae ssp pneumoniae 11/07/2018 [facility] TRIMETHOPRIM+SULFAMETHOXAZOLE:SUSC:PT:ISOLATE:ORDQN:SOPHIA Klebsiella pneumoniae ssp pneumoniae Klebsiella pneumoniae ssp pneumoniae 11/07/2018 [facility] URINE AND STOOL UA Turbidity Cloudy *ABN* (11/07/18 2:42 AM) Clear 11/07/2018 [facility] URINE AND STOOL UA Color Yellow *NA* (11/07/18 2:42 AM) Yellow 11/07/2018 [facility] URINE AND STOOL UA Spec Grav 1.010 <=1.030 11/07/2018 [facility] URINE AND STOOL UA pH 6.5 5.0 - 8.0 11/07/2018 [facility] URINE AND STOOL UA Glucose Negative (11/07/18 2:42 AM) Negative 11/07/2018 [facility] URINE AND STOOL UA Protein Negative (11/07/18 2:42 AM) Negative 11/07/2018 [facility] URINE AND STOOL UA Ketones Negative *NA* (11/07/18 2:42 AM) Negative 11/07/2018 [facility] URINE AND STOOL UA Urobilinogen 0.2 0.1 - 1.0 11/07/2018 [facility] URINE AND STOOL UA Bili Negative *NA* (11/07/18 2:42 AM) Negative 11/07/2018 [facility] URINE AND STOOL UA Nitrite Positive *ABN* (11/07/18 2:42 AM) Negative 11/07/2018 [facility] URINE AND STOOL UA Blood Trace *ABN* (11/07/18 2:42 AM) Negative 11/07/2018 [facility] URINE AND STOOL UA Bacteria Many /HPF None Seen /HPF 11/07/2018 [facility] URINE AND STOOL UA RBC None Seen (11/07/18 2:42 AM) 0 - 2 11/07/2018 [facility] URINE AND STOOL UA Sq Epi Few /LPF Few /LPF 11/07/2018 [facility] URINE AND STOOL UA WBC 21-50 /HPF None Seen /HPF 11/07/2018 [facility] URINE AND STOOL UA Leuk Est Large *ABN* (11/07/18 2:42 AM) Negative 11/07/2018 [facility] BLOOD BANK RESULTS Antibody Scrn Negative (11/07/18 12:36 AM) 11/07/2018 [facility] BLOOD BANK RESULTS ABO/Rh A POS 11/07/2018 [facility] HEMATOLOGY PTT 28.6 22.9 - 35.8 11/07/2018 [facility] HEMATOLOGY INR 1.01 0.85 - 1.17 11/07/2018 [facility] HEMATOLOGY PT 13.1 12.0 - 14.7 11/07/2018 [facility] HEMATOLOGY WBC 7.2 3.7 - 10.4 11/07/2018 [facility] HEMATOLOGY RBC 4.11 4.20 - 5.40 11/07/2018 [facility] HEMATOLOGY MCHC 33.6 32.0 - 36.0 11/07/2018 [facility] HEMATOLOGY RDW 14.4 11.5 - 14.5 11/07/2018 [facility] HEMATOLOGY MCH 29.9 27.0 - 31.0 11/07/2018 [facility] HEMATOLOGY Hgb 12.3 12.0 - 16.0 11/07/2018 [facility] HEMATOLOGY Hct 36.6 36.0 - 48.0 11/07/2018 [facility] HEMATOLOGY Platelet 216 133 - 450 11/07/2018 [facility] HEMATOLOGY MPV 8.7 7.4 - 10.4 11/07/2018 [facility] HEMATOLOGY MCV 89.0 80.0 - 98.0 11/07/2018 [facility] HEMATOLOGY Eosinophils # 0.2 0.0 - 0.5 11/07/2018 [facility] HEMATOLOGY Basophils 0.7 0.0 - 1.0 11/07/2018 [facility] HEMATOLOGY Neutrophils # 3.9 1.5 - 8.1 11/07/2018 [facility] HEMATOLOGY Lymphocytes # 2.3 1.0 - 5.5 11/07/2018 [facility] HEMATOLOGY Eosinophils 3.4 0.0 - 4.0 11/07/2018 [facility] HEMATOLOGY Monocytes # 0.7 0.0 - 0.8 11/07/2018 [facility] HEMATOLOGY Monocytes 10.0 2.0 - 12.0 11/07/2018 [facility] HEMATOLOGY Basophils # 0.1 0.0 - 0.2 11/07/2018 [facility] HEMATOLOGY Segs 54.3 45.0 - 75.0 11/07/2018 [facility] HEMATOLOGY Lymphocytes 31.6 20.0 - 40.0 11/07/2018 [facility] Pathology Reports No Data Provided for This Section Diagnostic Reports Report Value Date Source Brain w/wo contrast MRI EXAM: MRI BRAIN WITHOUT AND WITH CONTRAST DATE: 11/07/2018 INDICATION: 68-year-old female with worsening confusion, history of meningioma overlying the left parieto-occipital convexity COMPARISON: 11/07/2018 CT head TECHNIQUE: Multisequence multiplanar MR images of the brain obtained before and after IV administration of 17 mL MultiHance FINDINGS: No restricted diffusion to indicate recent ischemic change. Remote small lacunar infarct in the deep white matter of the anterior right frontal lobe. 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 A few scattered punctate foci of susceptibility artifact in the deep white matter and bilateral basal ganglia representing remote microhemorrhages. There is global cerebral volume loss with ex vacuo compensatory expansion of the ventricles and extra-axial spaces. There is calcified enhancing extra-axial mass with a broad dural base which is centered on the left parieto-occipital sulcus, 2.0 x 2.0 x 1.8 cm AP x LR x SI dimension, consistent with meningioma. This exerts localized mass effect upon the immediately subjacent left parietal and occipital lobes. Near the cortical interface with the mass there is trace parenchymal hyperintense FLAIR signal. No other abnormal parenchymal, leptomeningeal, or pachymeningeal enhancement. No mass effect elsewhere. The ventricles and basilar cisterns are patent. No abnormal extra-axial fluid collection. The major intracranial vascular flow- related signal voids are maintained. Orbital structures unremarkable. Minimal ethmoid air cell mucosal thickening. Otherwise clear paranasal sinuses and mastoid air cells. IMPRESSION: No acute infarct Remote small lacunar infarct in the right herrera radiata Global cerebral volume loss, chronic microvascular ischemic changes, and a few bilateral basal ganglia chronic microhemorrhages Calcified meningioma overlying the left parieto-occipital convexity exerting localized mass effect upon the immediately subjacent brain parenchyma 11/07/2018 [facility] Spine cervical wo contrast MRI EXAM: MRI CERVICAL SPINE WITHOUT CONTRAST DATE: 11/07/2018 INDICATION: Spinal canal stenosis, assessment for myelopathy COMPARISON: Cervical spine CT 11/07/2018 TECHNIQUE: Multiplanar, multisequence noncontrast MR imaging of the cervical spine. FINDINGS: Normal cervical vertebral body height and alignment. Intervertebral disc spaces are congruent. No marrow edema or suspicious focal marrow signal abnormality. No ligamentous edema in the cervical spine or craniocervical junction identified. Unremarkable unenhanced prevertebral and paraspinous soft tissues. At C2-C3, there is mild right neural foraminal stenosis related to uncovertebral hypertrophy. No spinal canal or left neural foraminal stenosis. At C3-C4, right-sided facet and uncovertebral hypertrophy contribute to moderate neural foraminal stenosis. No left neural foraminal or spinal canal stenosis. At C4-C5, posterior disc osteophyte complex flattens and indents the ventral thecal sac without mass effect upon the cord. Facet and uncovertebral hypertrophy contribute to moderate right and mild left neural foraminal stenosis. At C5-C6, posterior disc osteophyte complex flattens and mildly indents the ventral cord, more pronounced on the right. Overall moderate spinal canal stenosis with partial effacement of CSF surrounding the cord Facet and uncovertebral hypertrophy contribute to moderate right and mild left foraminal stenosis. At C6-C7, disc bulge and posterior osteophytic ridging flatten and indent the ventral cord, more pronounced on the left. There is also mild thickening of the ligamentum flavum on the left. These factors contribute to overall moderate- severe spinal canal stenosis, with essentially complete effacement of CSF surrounding the cord. There is no associated cord signal abnormality or obvious cord volume loss. Facet and uncovertebral hypertrophy contribute to mild bilateral neural foraminal narrowing At C7-T1, no spinal canal or neural foraminal stenosis. IMPRESSION: Spinal canal stenosis at C6-C7 ([id number]) and C5-C6 (moderate), due to disc bulges and posterior spondylotic bars. No cord signal abnormality or obvious cord volume loss at either level Varying degrees of neural foraminal stenoses, moderate on the right at C3-C4, C4-C5, and C5-C6, with conceivable intrusion upon the corresponding exiting nerve roots at these levels. Milder neural foraminal narrowing at additional levels. 11/07/2018 [facility] Chest 2 views DX EXAM: XR CHEST 2 VIEWS DATE: 11/07/2018 at 0017 hours INDICATION: - R sided pain after fall COMPARISON: TECHNIQUE: PA and lateral chest radiographs FINDINGS: Lines and tubes: None. Lungs and pleura: Few linear opacities are present in left lower lobe consistent with subsegmental atelectasis.No additional pulmonary or pleural based abnormality is identified. Heart and mediastinum: The heart size is at upper limits of normal for technique. The mediastinal contours are normal. Pulmonary vascularity is normal. Bones: No acute bony abnormality is identified. Endplate sclerosis, disc space narrowing and marginal osteophyte formation are present at mid and lower portions of the thoracic spine. Other: Surgical clips may be present in the right upper quadrant. IMPRESSION: 1. Cardiac silhouette is at upper limits of normal in size. 2. Left basilar subsegmental atelectasis. 3. 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 4. Linear densities are seen in the right upper quadrant in the lateral view only. These may indicate prior cholecystectomy. 11/07/2018 [facility] Hip 2/3 views uni w pelvis DX EXAM: XR RIGHT HIP 2 VIEW AND AP PELVIS DATE: 11/07/2018 at 0021 hours INDICATION: - pain after fall COMPARISON: None TECHNIQUE: AP and a frog-leg lateral radiograph of the right hip and a single AP radiograph of the pelvis DISCUSSION: There is enhancement of primary stress-bearing trabecula indicating osteopenia.. No acute fracture or malalignment is identified. Hip joint spaces are preserved bilaterally. Endplate sclerosis, disc space narrowing and facet arthropathy are present at L4-S1. No soft tissue abnormality is identified. IMPRESSION: 1. There is no acute osseous abnormality of the right hip identified. 2. Osteopenia. 3. Lumbar spondylosis. 11/07/2018 [facility] Wrist complete DX EXAM: XR RIGHT WRIST 3 VIEWS DATE: 11/07/2018 at 0026 hours INDICATION: - pain after fall COMPARISON: None TECHNIQUE: PA, lateral, navicular and oblique radiographs of the right wrist DISCUSSION: There is generalized decreased bone mineral density. No acute fracture or malalignment of the right wrist is identified. There is narrowing of carpal metacarpal joint of right thumb with a well-circumscribed smooth bordered ossicle seen at the base of the metacarpal. No soft tissue abnormality is identified. IMPRESSION: 1. There is no acute osseous abnormality of the right wrist identified. 2. Generalized osteopenia. 3. Degenerative change at carpal metacarpal joint of right thumb. 11/07/2018 [facility] Elbow 3 views DX EXAM: XR RIGHT ELBOW 3 VIEWS DATE: 11/07/2018 at 0025 hours INDICATION: - pain after fall COMPARISON: None TECHNIQUE: AP, lateral and oblique radiographs of the right elbow DISCUSSION: A well-circumscribed ossific fragment is seen adjacent to the lateral epicondyle of the distal right humerus. Marginal osteophyte formation is present at the radial head, coronoid process and trochlea accompanied by mild joint space narrowing. There is no excessive joint fluid. No soft tissue abnormality is identified. IMPRESSION: 1. There is no acute abnormality of the right elbow identified. 2. Posttraumatic osteoarthritis of the right elbow. 3. Prior injury at lateral epicondyle of distal right humerus. 11/07/2018 [facility] Spine cervical wo contrast CT EXAM: CT CERVICAL SPINE WITHOUT CONTRAST DATE: 11/07/2018 at 0054 hours INDICATION: - fall COMPARISON: Same-day noncontrast head CT. TECHNIQUE: Volumetric CT of the cervical spine is acquired without contrast. Axial, coronal and sagittal images are provided. IV contrast: None. DLP: 642 mGy-cm UT SECTION: ER FINDINGS: The spine is imaged from the skull base to the level of T3. No acute fracture or malalignment is identified. No acute prevertebral or paraspinal soft tissue abnormality is identified. Multilevel degenerative changes are seen, most significant at C6-C7 where there is moderate intervertebral disc height loss and a posterior disc osteophyte complex which results in severe spinal canal narrowing and indentation of the thecal sac. Mild spinal canal narrowing is also seen at C5-C6. There is grade 1 anterolisthesis of C4 over C5 and C5 over C6 associated with facet arthropathy. Bony encroachment and narrowing of neuroforamina are present at C3-C4 on the right, at C5-C6 bilaterally, greater on the right, and at C6-C7 bilaterally. Bilateral carotid bulb calcifications are present. Chondrocalcinosis is present at the transverse ligament posterior to the odontoid process. IMPRESSION: 1. No acute abnormality of the cervical spine is identified. 2. Advanced degenerative disc disease at C6-C7 associated with posterior disc osteophyte complex formation and narrowing of the AP dimension of the spinal canal. 3. Multilevel cervical spondylosis as described. 4. Chondrocalcinosis. 5. Bilateral carotid bulb calcifications. 11/06/2018 [facility] Brain wo contrast CT EXAM: CT HEAD WITHOUT CONTRAST DATE: 11/06/2018 11:52 PM CDT INDICATION: 68 years old Female patient with history of - meningioma with worsening confusion, fall. TECHNIQUE: Multiple axial images were obtained through the head from vertex to the skull base. Axial bone algorithm reconstruction images are provided. COMPARISON: None. FINDINGS: No acute intracranial hemorrhage is identified. A calcified meningioma is identified overlying the left parietal lobe measuring 2.0 cm in maximum diameter. The ventricles are normal in size. No parenchymal mass, mass effect or midline shift is present. The bonilla-white matter differentiation is maintained. No pathologic extra axial fluid is identified. The visualized paranasal sinuses are clear. No mastoid effusion is identified. The bony calvarium is intact. Partial empty sella. Changes of hyperostosis frontalis interna. IMPRESSION: 1. No acute intracranial abnormality. 2. A 2.0 cm left parieto-occipital parafalcine calcified meningioma. 11/06/2018 [facility] Consultation Notes No Data Provided for This Section Discharge Summaries No Data Provided for This Section History and Physicals No Data Provided for This Section Vital Signs Vital Sign Value Date Comments Source Systolic (mm Hg) 121 11/09/2018 [facility] Diastolic (mm Hg) 75 11/09/2018 [facility] Respitory Rate 18 11/09/2018 [facility] Heart Rate 86 11/09/2018 [facility] Temperature Oral (F) 97.9 F 11/09/2018 [facility] Systolic (mm Hg) 138 11/09/2018 [facility] Diastolic (mm Hg) 77 11/09/2018 [facility] Respitory Rate 18 11/09/2018 [facility] Temperature Oral (F) 97.4 F 11/09/2018 [facility] Heart Rate 75 11/09/2018 [facility] Weight 85.909 11/09/2018 [facility] Temperature Oral (F) 97.3 F 11/09/2018 [facility] Heart Rate 67 11/09/2018 [facility] Systolic (mm Hg) 118 11/09/2018 [facility] Diastolic (mm Hg) 67 11/09/2018 [facility] Respitory Rate 18 11/09/2018 [facility] BMI Calculated 33.55 11/07/2018 [facility] Weight 85.909 11/07/2018 [facility] Height 160.02 cm 11/07/2018 [facility] Height 160.02 cm 11/07/2018 [facility] BMI Calculated 33.19 11/07/2018 [facility] Weight 85 11/07/2018 [facility] Encounters Location Location Details Encounter Type Encounter Number Reason For Visit Attending Provider ADM Date DC Date Status Source [facility] Inpatient [id number] Pauly De Guzman 11/07/2018 11/09/2018 [facility] Procedures Procedure Code Date Perfomer Comments Source Appendix operation [id number] [facility] Cholecystectomy [id number] [facility] Hernia repair [id number] [facility] Hysterectomy [id number] [facility] Parathyroidectomy [id number] [facility] Assessment and Plan Assessment and Plan Date Source Extracted from:Title: Discharge Summary Author: Kamari Cochran MD Date: 11/09/18 General Neurology Discharge Summary Date of Admission: 11/07/18 Date of Discharge: 11/09/18 Admit Diagnosis: Gait Ataxia Discharge Diagnosis: Gait Ataxia Consults Obtained: None Brief HPI: Ms. Tyler is a 68 yo F w/PMH of HTN, HLD, [place] 6 mo ago, recurrent UTIs, and L [...] or having lapses in time. Reportedly, the delroy brittani was persistent, but it seems it wasn't [...] contrast (11/07): Spinal canal stenosis at C6-C7 ([id number]) and C5-C6 (moderate), due to disc bulges [...] Signs (last 24 hrs) Last Charted Temp Oral 97.9 DegF (NOV 09 15:15) Heart Rate Peripheral 86 bpm (NOV 09 15:15) Resp Rate 18 BRMIN (NOV 09 15:15) SBP 121 mmHg (NOV 09 15:15) DBP 75 mmHg (NOV 09 15:15) SpO2 99 % (NOV 09 15:15) Weight 85.909 kg (NOV 09 10:32) Physical exam: Gen: [...] MD - 11/09/2018 12:19 Physical Therapy :See Instructions, DANA MONTALVO, Evaluate and Treat 3 times per week [...] tract infection. Follow-up appointments: - Neurology: Call [phone] to schedule an appointment in neurology clinic within 2-4 weeks for further management. - PCP: Call your PCP to schedule an appointment within 2-4 weeks for post-hospitalization follow-up and management of your overall health. If you don't have a PCP, call [facility] at [phone] to schedule an appointment with a Primary Care Physician within 2-4 weeks for management of your overall health. Please call our nurse navigator Darlyn ([phone]) with any questions regarding medications, follow-up appointments, or dischargeinstructions. Please take your discharge paperwork with you to your follow-up appointments. Returning back to work/school will be addressed at your follow-up appointment. Neurology clinic address: [address], [address] [place] [address] Are There Any Activity Restrictions : Yes Activity : Activity as tolerated, Ambulate with walker Clair Fontana MD Psychiatry PGY-1 [facility] [employer] Extracted from:Title: Neurology Author: Nathaly Drummond MD Date: 11/07/18 General Neurology History and Physical Chief Complaint: ataxia, dysarthria HPI: Ms. Tyler is a 68 yo F w/PMH of HTN, HLD, IA 6 mo ago, recurrent UTIs, and L [...] or having lapses in time. Reportedly, the delroy brittani was persistent, but it seems it wasn't [...] easy bruising PSYCH: no anxiety, depression Objective: Vitals Tmp(F) Pulse BP RR SpO2 FIO2 11/07 10:31 98.4 74 122/61 18 94 --- 11/07 09:22 ---- 73 123/62 18 94 --- 11/07 08:29 98.0 76 114/59 18 98 --- 11/07 06:49 ---- 89 153/69 18 98 --- 11/07 04:00 ---- 70 104/57 17 96 --- 24 Hr Tmax: 98.4F (36.89c) at 11/07 10:31 Vital Signs are the last 5 in the [...] Labs: Labs (Last four charted values) WBC 7.2 (NOV 07) Hgb 12.3 (NOV 07) Hct 36.6 (NOV 07) Plt 216 (NOV 07) Na H 146 (NOV 07) H 147 (NOV 07) K L 3.4 (NOV 07) C 2.8 (NOV 07) CO2 29 (NOV 07) 28 (NOV 07) Cl H 110 (NOV 07) H 110 (NOV 07) Cr 0.89 (NOV 07) 1.00 (NOV 07) BUN 9 (NOV 07) 11 (NOV 07) Glucose Random 99 (NOV 07) 96 (NOV 07) Mg H 2.7 (NOV 07) Ca 8.7 (NOV 07) 8.8 (NOV 07) PT 13.1 (NOV 07) INR 1.01 (NOV 07) PTT 28.6 (NOV 07) Imaging: MRI w/ and w/out appears stable, read pending A&P: 68 yo F w/PMH of HTN, HLD, IA 6 mo ago, recurrent UTIs, L parietal [...] from MRI w/thin cuts through the brainstem. BINDERY CHIEF Focal seizures - cEEG to capture frequency, [...] MD Neurology PGY-2 Case discussed with the director zone Neurology attending. General neurology service #: [id number] POA: BINDERY CHIEF - Ataxia, Dysarthria, Seizures CV - HTN, [...] 1 gm INJ VL 1 gm, IVPB, [id number] divalproex sodium 500 mg ER tab 1,000 mg 2 tab, PO, Bedtime heparin 5000 unit/1 ml INJ VL 5,000 unit 1 mL, SUB-Q, Q8H levothyroxine 100 microgram TAB 100 microgram 1 tab, PO, Daily LORazepam 1 mg TAB 1 mg 1 tab, PO, ONCE Continuous: (0) PRN: (0) Objective: Vital Signs (last 24 hrs) Last Charted Temp Oral 98.0 DegF (NOV 08) Heart Rate Peripheral 74 bpm (NOV 08) Resp Rate 18 BRMIN (NOV 08) SBP 109 mmHg (NOV 08) DBP 68 mmHg (NOV 08) SpO2 97 % (NOV 08) Physical exam: Gen: laying [...] L Labs (Last four charted values) WBC 4.6 (NOV 08) 7.2 (NOV 07) Hgb L 11.6 (NOV 08) 12.3 (NOV 07) Hct L 34.3 (NOV 08) 36.6 (NOV 07) Plt 210 (NOV 08) 216 (NOV 07) Na H 148 (NOV 08) H 146 (NOV 07) H 147 (NOV 07) K L 3.3 (NOV 08) L 3.4 (NOV 07) C 2.8 (NOV 07) CO2 26 (NOV 08) 29 (NOV 07) 28 (NOV 07) Cl H 113 (NOV 08) H 110 (NOV 07) H 110 (NOV 07) Cr 0.64 (NOV 08) 0.89 (NOV 07) 1.00 (NOV 07) BUN 11 (NOV 08) 9 (NOV 07) 11 (NOV 07) Glucose Random 79 (NOV 08) 99 (NOV 07) 96 (NOV 07) Mg 2.3 (NOV 08) H 2.7 (NOV 07) Phos 4.4 (NOV 08) Ca L 8.4 (NOV 08) 8.7 (NOV 07) 8.8 (NOV 07) PT 13.1 (NOV 07) INR 1.01 (NOV 07) PTT 28.6 (NOV 07) Diagnostic Testing: CT Brain w/o contrast [...] contrast (11/07): Spinal canal stenosis at C6-C7 ([id number]) and C5-C6 (moderate), due to disc bulges [...] yo F w/ PMH of HTN, HLD, [place] 6 mo ago, recurrent UTIs, L parietal [...] PT recs Clair Fontana MD Psychiatry PGY-1 [facility] Neurology Attending: I reviewed the resident's note, personally reviewed all the patients labs and imaging studies and performed a [...] cEEG pending, continue VPA. Treating UTI. Pauly De Guzman MD 11/09/2018 [facility] Plan of Care No Data Provided for This Section Social History Social History Date Source Social History TypeResponse Substance Abuse Use: None. Smoking Status Never smoker; Exposure to Tobacco Smoke Unable to obtain; Cigarette Smoking Last 365 Days Unable to obtain; Reg Smoking Cessation Counseling No entered on: 11/07/18 11/07/2018 [facility] Family History No Data Provided for This Section Advance Directives No Data Provided for This Section Functional Status No Data Provided for This Section
--- OUTSIDE RECORDS SUMMARY | 2019-03-30 07:59 | XMS REPORT | Continuity of Care Document ---
Author Author [facility] Organization [facility] Address Unknown Phone Unavailable Care Team Providers Care Dining Car Waiter/Waitress Name Role Phone ASHLEY RIVERA MD PCP Insurance Providers Guarantor NayeliSophia Address [address] [address] Email N Payer [facility] Policy Number [id number] Subscriber's Name Sophia Tyler Relationship Self / Same As Patient Group Number [id number] Group Name MEDICARE REPLACEMENT Effective Date 18 Advance Directives Directive Response Recorded Date/Time Does the Patient have an Advance Directive? No 02/18/19 6:38pm Chief Complaint and Reason for Visit Chief Complaint Multiple Complaints Reason for Visit Urinary tract infection Seizure disorder Problems Medical Problem Onset Date Status Benign [...] Non-STEMI (non-ST elevated myocardial infarction) Unknown Acute Seizure disorder Unknown Acute Urinary tract infection Unknown Acute Medications Current Home Medications Medication [...] 40 Mg Capcr 40 Mg Oral Daily Levetiracetam (Keppra) 500 Mg Tab 500 Mg Oral Twice A Day 30 Days 60 Tablet 02/18/19 Levothyroxine Sodium (Synthroid) 100 Mcg Tab 100 Mcg Oral Daily Before Breakfast Linaclotide (Linzess) 290 Mcg Capsule 290 Mcg Oral Daily Take 30 minutes before first meal of the day. Metoclopramide Hcl (Reglan) 10 Mg Tab 10 Mg Oral Daily Nitroglycerin (Nitrostat) 0.4 Mg Subl 0.4 Mg Sublingual Every 5 Minutes X 3 Doses as needed for Chest Pain Trimethoprim/Sulfamethoxazole (Bactrim Ds, Septra Ds, Sulfatrim Ds) 1 Each Tab 1 Tab Oral Twice A Day 7 Days 14 Tablet 02/18/19 Social History Social History Problem Response Recorded Date/Time Onset Date Status Hx Tobacco Use No 02/18/2019 6:38pm Not Applicable Not Applicable Smoking Status Start Date Stop Date Never Smoker Hospital Discharge Instructions No hospital discharge instruction information available. Plan of Care Discharge Date 02/18/19 9:55pm Disposition HOME, SELF-CARE 01 Condition at Discharge Stable Instructions/Education Provided Asymptomatic Bacteriuria Epilepsy in Adults Forms Provided Procedures & Tests Performed Work/School Release Prescriptions See Medication Section Referrals ASHLEY RIVERA MD Address: [address] [place] [id number] Additional Instructions/Education follow-up as directed with your neurologist and primary care physician. Take your medications as prescribed. Return if any acute worsening of symptoms. Functional Status Query Response Date Recorded Onset Within the Last 7 Days No Problem Identified February 18, 2019 6:38pm Allergies, Adverse Reactions, Alerts No known allergies. Immunizations Query Response on File Recorded Date/Time HX of Pneumococcal Vaccine Yes 02/18/19 6:38pm HX of Influenza Vaccine Yes 02/18/19 6:38pm Date Influenza Given 05/201802/18/19 6:38pm Tetanus Status Less Than 5 Years 02/18/19 6:38pm Vital Signs Acute Vital Signs Vital Response Date/Time Temperature (Fahrenheit) 98.1 degrees F (97.6 - 99.5) 02/18/2019 9:55pm Pulse Rate (adult) 76 bpm (60 - 100) 02/18/2019 8:47pm Pulse Rate 76 bpm 02/18/2019 9:55pm Respiratory Rate 14 breaths per minute (12 - 24) 02/18/2019 8:47pm Respiratory Rate 14 breaths per minute 02/18/2019 9:55pm Blood Pressure Systolic 147 mm Hg (100 - 140) 02/18/2019 8:47pm Blood Pressure Systolic 147 mm Hg 02/18/2019 9:55pm Blood Pressure Diastolic 78 mm Hg (60 - 90) 02/18/2019 8:47pm Blood Pressure Diastolic 78 mm Hg 02/18/2019 9:55pm Height 5 ft 3 in 02/18/2019 6:31pm Weight 178 lb 02/18/2019 6:31pm Body Mass Index 31.5 kg/m^2 02/18/2019 6:31pm Results Laboratory Results Test Name Result Units Flags Reference Collection Date/Time Result Date/Time Comments White Blood Count 6.8 10*3/uL 4.5-11.5 02/18/2019 7:35pm 02/18/2019 7:52pm Red Blood Count 4.28 10*6/uL 3.8-5.1 02/18/2019 7:35pm 02/18/2019 7:52pm Hemoglobin 13.1 g/dL 12.0-15.2 02/18/2019 7:35pm 02/18/2019 7:52pm Hematocrit 38.2 % 34.0-45.5 02/18/2019 7:35pm 02/18/2019 7:52pm Mean Corpuscular Volume 89.3 fL 80-94 02/18/2019 7:35pm 02/18/2019 7:52pm Mean Corpuscular Hemoglobin 30.6 pg 27.0-33.0 02/18/2019 7:35pm 02/18/2019 7:52pm Mean Corpuscular Hemoglobin Concent 34.3 g/dL 33.0-37.0 02/18/2019 7:35pm 02/18/2019 7:52pm Red Cell Distribution Width 13.7 % 10.7-14.5 02/18/2019 7:35pm 02/18/2019 7:52pm Platelet Count 227 10*3/uL 150-450 02/18/2019 7:35pm 02/18/2019 7:52pm Mean Platelet Volume 9.4 fL 5.7-10.7 02/18/2019 7:35pm 02/18/2019 7:52pm Neutrophils (%) (Auto) 82 % H 47-75 02/18/2019 7:35pm 02/18/2019 7:52pm Lymphocytes (%) (Auto) 11 % L 25-44 02/18/2019 7:35pm 02/18/2019 7:52pm Monocytes (%) (Auto) 7 % 3-10 02/18/2019 7:35pm 02/18/2019 7:52pm Eosinophils (%) (Auto) 0 % 0-7 02/18/2019 7:35pm 02/18/2019 7:52pm Basophils (%) (Auto) 1 % 0-1 02/18/2019 7:35pm 02/18/2019 7:52pm Neutrophils # (Auto) 5.5 10*3/uL 1.3-6.7 02/18/2019 7:35pm 02/18/2019 7:52pm Lymphocytes # (Auto) 0.8 10*3/uL L 1.4-4.1 02/18/2019 7:35pm 02/18/2019 7:52pm Monocytes # (Auto) 0.4 10*3/uL 0-1.3 02/18/2019 7:35pm 02/18/2019 7:52pm Eosinophils # (Auto) 0.0 10*3/uL 0-0.8 02/18/2019 7:35pm 02/18/2019 7:52pm Basophils # (Auto) 0.0 10*3/uL 0-0.1 02/18/2019 7:35pm 02/18/2019 7:52pm Manual Differential Not Ind 02/18/2019 7:35pm 02/18/2019 7:52pm Urine Source URINE 02/18/2019 8:54pm 02/18/2019 8:58pm Urine Color Yellow Yel-Jessie * 02/18/2019 8:54pm 02/18/2019 9:02pm Urine Appearance Clear Clear * 02/18/2019 8:54pm 02/18/2019 9:02pm Urine pH 6.0 5.0-8.0 02/18/2019 8:54pm 02/18/2019 9:02pm Urine Specific [place] 1.022 1.005-1.030 02/18/2019 8:54pm 02/18/2019 9:02pm Urine Protein 20 mg/dL H Negative * 02/18/2019 8:54pm 02/18/2019 9:02pm Urine Glucose (UA) 50 mg/dL H Negative * 02/18/2019 8:54pm 02/18/2019 9:02pm Urine Ketones 20 mg/dL H Negative * 02/18/2019 8:54pm 02/18/2019 9:02pm Urine Occult Blood Negative Negative * 02/18/2019 8:54pm 02/18/2019 9:02pm Urine Nitrite Negative Negative 02/18/2019 8:54pm 02/18/2019 9:02pm Urine Bilirubin Negative mg/dL Negative 02/18/2019 8:54pm 02/18/2019 9:02pm Urine Urobilinogen Negative mg/dL 0.0-1.0 02/18/2019 8:54pm 02/18/2019 9:02pm Urine Leukocyte Esterase 75 Adrien/uL H Negative 02/18/2019 8:54pm 02/18/2019 9:02pm Microscopic Urinalysis (T) ----- 02/18/2019 8:54pm 02/18/2019 9:02pm Urine RBC 11-30 /HPF H 0-2 02/18/2019 8:54pm 02/18/2019 9:18pm Urine WBC 21-40 /HPF H 0-5 02/18/2019 8:54pm 02/18/2019 9:18pm Urine Epithelial Cells Frequent /HPF A Few 02/18/2019 8:54pm 02/18/2019 9:18pm Urine Crystals None Seen /HPF None * 02/18/2019 8:54pm 02/18/2019 9:18pm Urine Bacteria Frequent /HPF A None 02/18/2019 8:54pm 02/18/2019 9:18pm Urine Casts None Seen /LPF None * 02/18/2019 8:54pm 02/18/2019 9:18pm Urine Yeast None Seen /HPF None 02/18/2019 8:54pm 02/18/2019 9:18pm Urinalysis Comment * * 02/18/2019 8:54pm 02/18/2019 9:02pm Ref Range=* Clinical evaluation required. Urine Culture Indicated To follow A 02/18/2019 8:54pm 02/18/2019 9:18pm Sodium Level 134 mmol/L L 136-145 02/18/2019 7:35pm 02/18/2019 8:16pm Potassium Level 4.0 mmol/L 3.5-5.1 02/18/2019 7:35pm 02/18/2019 8:16pm Chloride Level 98 mmol/L 98-107 02/18/2019 7:35pm 02/18/2019 8:16pm Carbon Dioxide Level 26 mmol/L 21-32 02/18/2019 7:35pm 02/18/2019 8:16pm Anion Gap 14 5-14 02/18/2019 7:35pm 02/18/2019 8:16pm Blood Urea Nitrogen 13 mg/dL 6-20 02/18/2019 7:35pm 02/18/2019 8:16pm Creatinine 0.6 mg/dL 0.6-1.3 02/18/2019 7:35pm 02/18/2019 8:16pm Estimat Glomerular Filtration Rate 106 60-110 02/18/2019 7:35pm 02/18/2019 8:16pm Stages of Patients with Estimated GFR Known [...] the result provided by 1.21. BUN/Creatinine Ratio 22 02/18/2019 7:35pm 02/18/2019 8:16pm Glucose Level 122 mg/dL H 60-100 02/18/2019 7:3502/18/2019 8:16pm Calculated Osmolality 270 mOsm/kg 02/18/2019 7:3502/18/2019 8:16pm Calcium Level 9.1 mg/dL 8.5-10.1 02/18/2019 7:35pm 02/18/2019 8:16pm Total Bilirubin 0.4 mg/dL 0.1-1.0 02/18/2019 7:35pm 02/18/2019 8:16pm Aspartate Amino Transf (AST/SGOT) 12 U/L L 15-37 02/18/2019 7:35pm 02/18/2019 8:16pm Alanine Aminotransferase (ALT/SGPT) 20 U/L 12-78 02/18/2019 7:35pm 02/18/2019 8:16pm Total Protein 7.0 g/dL 6.4-8.3 02/18/2019 7:35pm 02/18/2019 8:16pm Albumin 3.3 g/dL L 3.5-5.0 02/18/2019 7:35pm 02/18/2019 8:16pm Globulin 3.7 g/dL 02/18/2019 7:35pm 02/18/2019 8:16pm Albumin/Globulin Ratio 0.9 02/18/2019 7:35pm 02/18/2019 8:16pm Alkaline Phosphatase 100 U/L 46-116 02/18/2019 7:35pm 02/18/2019 8:16pm Bedside Troponin I 0.00 ng/mL 0.00-0.07 02/18/2019 7:41pm 02/18/2019 7:54pm Procedures Procedure Status Date Provider(s) ECG (electrocardiogram) Active 02/18/19 DANIELLE ANDINO MD Computed tomography of head or brain without contrast Completed 02/18/19 DANIELLE ANDINO MD Encounters Encounter Location Arrival/Admit Date Discharge/Depart Date Attending Provider Departed Emergency Room [facility] 02/18/19 6:10pm 02/18/19 9:55pm DANIELLE ANDINO MD Recent Diagnosis Urinary tract infection
[2019-03-30 11:15] VITALS: BP 157/88
--- NOTE | 2019-03-30 12:24 | Operative Report ---
DATE OF PROCEDURE: 03/30/2019 SURGEON: Shakir Aguilera MD PREOPERATIVE DIAGNOSIS: Recurrent incisional hernia. POSTOPERATIVE DIAGNOSIS: Recurrent incisional hernia. PROCEDURES: Repair of recurrent incisional hernia. SITE DAMAGE PREVENTION TECHNICIAN: None. ANESTHESIA: General. INDICATIONS AND FINDINGS: The patient is a 69-year-old female, who presented with complaints of a bulge at the site of previous surgery. Exam revealed a reducible hernia in the upper end of her upper midline wound surgery. Surgery, there was a hernia fascial defect approximately 2 x 2 cm where there was disruption of previously placed mesh. TECHNIQUE: After adequate general endotracheal anesthesia with the patient in supine position, the abdomen was prepped and draped in a sterile fashion with ChloraPrep solution. According to the previous midline wound incision made just below the xiphoid, carried down through subcutaneous tissue, the area of hernia was seen in the upper midline. This was dissected free. There was found to be some mesh material which had become disrupted from the abdominal wall with a fascial defect in this area. The fascial defect was completely delineated. The tissues otherwise appeared healthy and the hernia was repaired directly closing the fascial defect with interrupted sutures of 0 prolene, incorporating the mesh into the closure. Hemostasis was seen to be adequate. The wound was irrigated with saline and then infiltrated with 0.5% Marcaine. The subcutaneous tissue was closed with running suture of 3-0 Vicryl. Skin was closed with maren. Sterile dressing was applied. The patient tolerated the procedure well. Estimated blood loss was 5 mL. There were no complications. All counts were correct. The patient was taken to the recovery room in satisfactory condition. Shakir Aguilera MD DWG/MODL /[id number]
== END | disposition home or self-care (01) ==
LOC: OR 07:31
PROVIDERS: ATTEND Surgery
DX: K43.2 Incisional hernia without obstruction or gangrene (principal); Z01.810 Encounter for preprocedural cardiovascular examination; Z01.812 Encounter for preprocedural laboratory examination; E03.9 Hypothyroidism, unspecified; K58.9 Irritable bowel syndrome, unspecified; Z87.442 Personal history of urinary calculi; I25.2 Old myocardial infarction; I25.10 Atherosclerotic heart disease of native coronary artery without angina pectoris
CPT/HCPCS: 36415; 49565; 71046; 80048; 85025; 93005; J0131; J0690; J1100; J2001; J2405; J2704; J3010

== ENCOUNTER → 2020-11-08 | Outpatient (CLI) | payer MEDICARE ==
[~2020-11-08] MED LIST changes: -ACETAMINOPHEN 1000 MG/100 ML 100 ML IV ONE; -ACETAMINOPHEN 1000 MG/100 ML IV ONE; -ACETAMINOPHEN/CODEINE 300MG - 30MG TAB ONE; +AMLODIPINE BESYL5 MG PO; -BUPIVACAINE HCL 0.5% INJ 30 ML VIAL INJ ONE; -CEFAZOLIN SOD 1 GM/NS 50ML 100 ML IV ONE; -DEXAMETHASONE SOD PHOS INJ 4 MG/ML VIAL ONE; -FENTANYL CITRATE/PF 100MCG/2 ML INJ ONE; +IBUPROFEN200 MG PO; -LIDOCAINE HCL 2% LOCAL INJ 5 ML SDV VIAL INJ ONE; -ONDANSETRON HCL INJ 2MG/ML 2ML 2 MG/ML VIAL ONE; -PROPOFOL IV EMULSION 10 MG/ML 20 ML VIAL ONE; -ROCURONIUM BROMIDE 10 MG/ML 5ML VIAL ONE; -SEVOFLURANE INHAL SOLN 250 ML PEN BTL ONE; -SUGAMMADEX SODIUM 200 MG/2 ML VIAL IV ONE
[2020-11-08 08:50] LABS: BASOPHILS # (AUTO) 0.1 (0.0-0.1); BASOPHILS % 0.9 % (0.0-1.0); EOSINOPHILS # (AUTO) 0.3 (0.0-0.4); EOSINOPHILS % 4.5 % (0.0-6.0); HEMATOCRIT 36.9 % (34.2-44.1); HEMOGLOBIN 12.2 g/dL (12.0-16.0); LYMPHOCYTES # (AUTO) 2.3 (1.0-3.2); LYMPHOCYTES % 30.3 % (18.0-39.1); MEAN CORPUSCULAR HEMOGLOBIN 29.5 pg (28-32); MEAN CORPUSCULAR HGB CONC 33.1 g/dL (31-35); MEAN CORPUSCULAR VOLUME 89.3 fL (81-99); MONOCYTES # (AUTO) 0.9 (0.2-0.8); MONOCYTES % 11.7 % (4.4-11.3); NEUTROPHILS # (AUTO) 3.9 (2.1-6.9); NEUTROPHILS % 52.2 % (38.7-80.0); PLATELET COUNT 272 x10e3/uL (140-360); RED BLOOD COUNT 4.13 x10e6/uL (3.6-5.1); RED CELL DISTRIBUTION WIDTH 13.2 % (11.7-14.4)
== END ==
LOC: DX 12:06 → EDSTATUS 11-12 14:00
PROVIDERS: ATTEND Specialist
DX: Z01.812 Encounter for preprocedural laboratory examination (principal); Z01.818 Encounter for other preprocedural examination; Z20.822 Contact with and (suspected) exposure to COVID-19; M16.12 Unilateral primary osteoarthritis, left hip
CPT/HCPCS: 36415; 71046; 85025; 93005; U0002

== ENCOUNTER 2025-02-27 12:12 | Inpatient (IN) | payer MEDICARE ==
[~2025-02-27] VITALS: Ht 160 cm; Wt 97.1 kg
[2025-02-27 13:50] LABS: BASOPHILS % 0.4 % (0.0-1.0); EOSINOPHILS % 1.0 % (0.0-6.0); LYMPHOCYTES % 14.4 % (18.0-39.1); MONOCYTES % 9.8 % (4.4-11.3); NEUTROPHILS % 74.2 % (38.7-80.0); RED CELL DISTRIBUTION WIDTH 13.1 % (11.7-14.4)
[2025-02-27] MEDS ORDERED: SODIUM CHLORIDE 0.9% 1000ML 1,000 ML ONE (14:08)
[2025-02-27 14:11] LABS: EST GLOMERULAR FILTRATION RATE 8.0 ML/MIN (>=60)
[2025-02-27] MEDS: SODIUM CHLORIDE 0.9% 1000ML 1,000 ML IV ONE (14:11)
[2025-02-27] MEDS: KETOROLAC TROMETHAMINE 30 MG/ML VIAL IV STA (14:11)
[2025-02-27 14:47] LABS: T3 UPTAKE 33.73 % (22.5-37.0)
[2025-02-27 15:10] VITALS: PULSE 74; RESP 22; O2SAT 96
[2025-02-27] MEDS: FENTANYL CITRATE/PF 100MCG/2 ML INJ IV PRN (15:14)
[2025-02-27] MEDS: SODIUM CHLORIDE 0.9% 1000ML 1,000 ML IV SCH (15:26)
[2025-02-27 16:45] VITALS: TEMP 98.2
[2025-02-27 17:57] VITALS: PULSE 56; RESP 18
[2025-02-27] MEDS ORDERED: OLMESARTAN-HCT1 EACH PO (18:39)
[2025-02-27] MEDS ORDERED: FLUOXETINE HCL20 MG PO (18:39)
[2025-02-27] MEDS ORDERED: LAMOTRIGINE100 MG PO (18:39)
[2025-02-27] MEDS ORDERED: GABAPENTIN300 MG/6 M PO (18:39)
[2025-02-27] MEDS ORDERED: TRAMADOL HCL100 MG PO (18:39)
[2025-02-27] MEDS ORDERED: CLONIDINE HCL0.1 MG PO (18:39)
[2025-02-27] MEDS ORDERED: METOPROLOL SUCC50 MG PO (18:39)
[2025-02-27] MEDS ORDERED: ONDANSETRON ODT8 MG PO (18:39)
[2025-02-27 18:47] LABS: LEUKOCYTE ESTERASE ,URINE MODERATE (NEGATIVE); PROTEIN,URINE DIPSTICK 1+ (NEGATIVE); URINE UROBILINOGEN 0.2 mg/dL (0.2 - 1)
[2025-02-27 19:02] VITALS: BP 118/55; PULSE 53; RESP 18; TEMP 97.6; O2SAT 100
[2025-02-27 19:04] LABS: EPITHELIAL CELLS,URINE RARE /LPF
[2025-02-27] MEDS: HYDROMORPHONE 1MG/1ML INJ IV PRN (22:14)
[2025-02-27] MEDS: ONDANSETRON HCL INJ 2MG/ML 2ML 2 MG/ML VIAL IV PRN (22:15)
[2025-02-27 23:33] VITALS: BP 90/55; PULSE 54; RESP 17; TEMP 97.9; O2SAT 100
[2025-02-28] VITALS (9 sets, daily range): BP systolic 104–118; BP diastolic 51–55; PULSE 53–61; RESP 16–20; TEMP 97–97.9; O2SAT 97–100
[2025-02-28] MEDS: LEVOTHYROXINE SODIUM 100 MCG TAB PO SCH (06:00)
[2025-02-28 06:10] LABS: BASOPHILS % 0.6 % (0.0-1.0); EOSINOPHILS % 1.4 % (0.0-6.0); LYMPHOCYTES % 15.3 % (18.0-39.1); MONOCYTES % 9.9 % (4.4-11.3); NEUTROPHILS % 72.6 % (38.7-80.0); RED CELL DISTRIBUTION WIDTH 13.2 % (11.7-14.4)
[2025-02-28 07:13] LABS: EST GLOMERULAR FILTRATION RATE 14.0 ML/MIN (>=60)
[2025-02-28] MEDS ORDERED: AMLODIPINE BESYLATE 5 MG TAB PO SCH (09:00)
[2025-02-28] MEDS: FLUOXETINE HCL 20 MG CAP PO SCH (09:06)
[2025-02-28] MEDS: LAMOTRIGINE 25 MG TAB PO SCH (09:06)
[2025-02-28] MEDS: SODIUM BICARBONATE 8.4% VIAL 150 ML in DEXTROSE 5% 1,000 ML IV SCH (12:48)
[2025-02-28] MEDS: ATORVASTATIN 20 MG TAB PO SCH (21:05)
[2025-03-01] VITALS (9 sets, daily range): BP systolic 104–140; BP diastolic 52–65; PULSE 57–68; RESP 16–20; TEMP 97.5–97.9; O2SAT 99–100
[2025-03-01 08:13] LABS: BASOPHILS % 0.4 % (0.0-1.0); EOSINOPHILS % 1.9 % (0.0-6.0); LYMPHOCYTES % 17.7 % (18.0-39.1); MONOCYTES % 15.8 % (4.4-11.3); NEUTROPHILS % 63.8 % (38.7-80.0); RED CELL DISTRIBUTION WIDTH 13.1 % (11.7-14.4)
[2025-03-01 08:56] LABS: EST GLOMERULAR FILTRATION RATE 25.0 ML/MIN (>=60)
[2025-03-01] MEDS: POTASSIUM CHLORIDE 20MEQ/100ML 100 ML IV SCH (10:22)
[2025-03-02] VITALS (7 sets, daily range): BP systolic 117–149; BP diastolic 51–69; PULSE 68–82; RESP 18–20; TEMP 97.2–98.4; O2SAT 99–100
[2025-03-02 06:18] LABS: EST GLOMERULAR FILTRATION RATE 48.0 ML/MIN (>=60)
[2025-03-02 06:36] LABS: BASOPHILS % 0.6 % (0.0-1.0); EOSINOPHILS % 3.1 % (0.0-6.0); LYMPHOCYTES % 24.4 % (18.0-39.1); MONOCYTES % 16.0 % (4.4-11.3); NEUTROPHILS % 55.6 % (38.7-80.0); RED CELL DISTRIBUTION WIDTH 13.2 % (11.7-14.4)
[2025-03-02] MEDS: MAGNESIUM SULFATE 2GM/50ML 50 ML IV ONE (16:03)
[2025-03-02] MEDS: SODIUM BICARBONATE 650 MG TAB PO SCH (18:02)
[2025-03-02] MEDS: POTASSIUM CHLORIDE 20MEQ/100ML 100 ML IV SCH (18:05)
[2025-03-02] MEDS: DEXTROSE 5%/0.225% SOD CHL 1,000 ML IV ONE (20:27)
[2025-03-03] VITALS (7 sets, daily range): BP systolic 131–164; BP diastolic 62–76; PULSE 52–73; RESP 18–20; TEMP 97.7–98.5; O2SAT 96–100
[2025-03-03 06:33] LABS: BASOPHILS % 0.5 % (0.0-1.0); EOSINOPHILS % 3.8 % (0.0-6.0); LYMPHOCYTES % 21.3 % (18.0-39.1); MONOCYTES % 13.9 % (4.4-11.3); NEUTROPHILS % 60.2 % (38.7-80.0); RED CELL DISTRIBUTION WIDTH 13.2 % (11.7-14.4)
[2025-03-03 07:02] LABS: EST GLOMERULAR FILTRATION RATE 70.0 ML/MIN (>=60)
[2025-03-03 07:20] LABS: PHOSPHORUS 2.1 MG/DL (2.3-4.7)
[2025-03-03] MEDS: MAGNESIUM SULFATE 2GM/50ML 50 ML IV ONE (14:07)
[2025-03-03] MEDS: SODIUM CHLORIDE 0.9% 250ML 250 ML ONE (14:13)
[2025-03-03] MEDS: POTASSIUM CHLORIDE 20MEQ/100ML 100 ML IV SCH (14:14)
[2025-03-03] MEDS: POTASSIUM CHLORIDE 20MEQ/100ML 100 ML IV ONE (22:01)
[2025-03-04] VITALS (7 sets, daily range): BP systolic 129–153; BP diastolic 65–89; PULSE 63–78; RESP 16–20; TEMP 97.5–98.4; O2SAT 97–100
[2025-03-04 06:22] LABS: EST GLOMERULAR FILTRATION RATE 73.0 ML/MIN (>=60)
[2025-03-04] MEDS: ACETAMINOPHEN/CODEINE 300MG - 30MG TAB PO PRN (20:42)
[2025-03-05] VITALS (9 sets, daily range): BP systolic 130–162; BP diastolic 67–79; PULSE 64–75; RESP 16–18; TEMP 97.5–98.4; O2SAT 94–98
[2025-03-05 06:18] LABS: EST GLOMERULAR FILTRATION RATE 65.0 ML/MIN (>=60)
[2025-03-05] MEDS: LEVETIRACETAM 500 MG TAB PO SCH (16:11)
[2025-03-06 03:33] VITALS: BP 130/62; PULSE 62; RESP 18; TEMP 97.4; O2SAT 96
[2025-03-06 08:03] VITALS: BP 143/73; PULSE 68; RESP 18; TEMP 97.9; O2SAT 95
[2025-03-06] MEDS: SODIUM CHLORIDE 0.9% 250ML 250 ML ONE (09:27)
== END 2025-03-06 09:30 | disposition home or self-care (01) | DRG 682 ==
LOC: ER 12:36 → ERHOLD 14:39 → MED/SURG2 18:44
PROVIDERS: ADMIT Internal Medicine; ATTEND Internal Medicine
PROC: 3E0333Z Introduction of Anti-inflammatory into Peripheral Vein, Percutaneous Approach (ICD-10-PCS; principal; 2025-02-28)
DX: N17.0 Acute kidney failure with tubular necrosis (principal); E43 Unspecified severe protein-calorie malnutrition; G93.41 Metabolic encephalopathy; N39.0 Urinary tract infection, site not specified; E87.20 Acidosis, unspecified; N25.89 Other disorders resulting from impaired renal tubular function; D69.6 Thrombocytopenia, unspecified; I10 Essential (primary) hypertension; E87.6 Hypokalemia; E03.9 Hypothyroidism, unspecified; D64.9 Anemia, unspecified; E78.5 Hyperlipidemia, unspecified; G40.909 Epilepsy, unspecified, not intractable, without status epilepticus; R53.81 Other malaise; D32.9 Benign neoplasm of meninges, unspecified; R51.9 Headache, unspecified; E66.01 Morbid (severe) obesity due to excess calories; Z68.37 Body mass index [BMI] 37.0-37.9, adult
CPT/HCPCS: 36415; 70450; 70551; 71045; 72125; 76770; 80048; 80053; 81001; 82550; 83605; 83690; 83735; 84100; 84436; 84443; 84479; 84484; 85025; 87086; 87186; 93005; 94799; 99252; 99285; J0696; J1171; J1885; J2405; J3475; J3480; J7030; J7050; J7070

== ENCOUNTER 2025-03-10 18:56 | Emergency (ER) | payer MEDICARE ==
[~2025-03-10] VITALS: Ht 160 cm; Wt 97.1 kg
[~2025-03-10 18:56] MED LIST changes: +CLONIDINE HCL0.1 MG PO; +FLUOXETINE HCL20 MG PO; +GABAPENTIN300 MG/6 M PO; +LAMOTRIGINE100 MG PO; +METOPROLOL SUCC50 MG PO; +OLMESARTAN-HCT1 EACH PO; +ONDANSETRON ODT8 MG PO; +TRAMADOL HCL100 MG PO
[2025-03-10 19:30] LABS: BASOPHILS % 0.6 % (0.0-1.0); EOSINOPHILS % 4.9 % (0.0-6.0); LYMPHOCYTES % 23.3 % (18.0-39.1); MONOCYTES % 11.7 % (4.4-11.3); NEUTROPHILS % 59.1 % (38.7-80.0); RED CELL DISTRIBUTION WIDTH 13.4 % (11.7-14.4)
[2025-03-10 19:53] LABS: EST GLOMERULAR FILTRATION RATE 44.0 ML/MIN (>=60)
[2025-03-10] MEDS ORDERED: ONDANSETRON HCL INJ 2MG/ML 2ML 2 MG/ML VIAL ONE (21:00)
[2025-03-10 21:06] LABS: LEUKOCYTE ESTERASE ,URINE NEGATIVE (NEGATIVE); PROTEIN,URINE DIPSTICK NEGATIVE (NEGATIVE); URINE UROBILINOGEN 0.2 mg/dL (0.2 - 1)
[2025-03-10] MEDS: ONDANSETRON HCL INJ 2MG/ML 2ML 2 MG/ML VIAL IV STA (21:08)
[2025-03-10] MEDS: ACETAMINOPHEN 325 MG TAB PO ONE (21:08)
[2025-03-10 21:18] LABS: EPITHELIAL CELLS,URINE MANY /LPF; WBC,URINE (MAN) 0-5 /HPF (0-5)
[2025-03-10 23:10] VITALS: PULSE 57; RESP 20; TEMP 98.5
[2025-03-10 23:11] VITALS: BP 136/67; PULSE 60; RESP 20; TEMP 98.7; O2SAT 98
== END 2025-03-10 23:12 | disposition other institution (70) ==
LOC: ER 19:27
DX: I60.9 Nontraumatic subarachnoid hemorrhage, unspecified (principal); R53.1 Weakness; R11.0 Nausea; I10 Essential (primary) hypertension; I25.2 Old myocardial infarction; E03.9 Hypothyroidism, unspecified; R56.9 Unspecified convulsions
CPT/HCPCS: 36415; 70450; 71045; 80053; 81001; 84484; 85025; 93005; 99284; J2405